=== PATIENT | male | born 1945 | race Caucasian/White ===

== ENCOUNTER 2017-04-16 15:40 | Emergency (ER) | payer MEDICARE ==
[~2017-04-16 15:40] MED LIST: BAYER CHEWABLE81 MG PO; GLIMEPIRIDE4 MG PO; GLUCOPHAGE1000 MG PO; LISINOPRIL-HCTZ1 T11 PO; NORVASC10 MG PO; PLAVIX75 MG PO; PRAVASTATIN SOD10 MG PO
[2017-04-16 16:44] LABS: BASOPHILS 0.3 % (0-2); EOSINOPHILS 2.6 % (0-7); HEMATOCRIT 42.3 % (42.0-54.0); HEMOGLOBIN 14.6 g/dL (13.5-17.5); IMMATURE GRANULOCYTES 0.2 % (0-5); LYMPHOCYTES 26.3 % (15-50); MCH 31.2 pg (26.0-34.0); MCHC 34.5 g/dL (31.0-37.0); MCV 90.4 fL (80.0-100.0); MEAN PLATELET VOLUME 12.2 fL (7.4-10.4); MONOCYTES 8.3 % (2-11); NEUTROPHILS 62.3 % (40-80); PLATELET COUNT 281 10x3/uL (130-400); RBC 4.68 10x6/uL (4.20-6.10); RDW 13.1 % (11.5-14.5); WBC 9.1 10x3/uL (4.8-10.8)
[2017-04-16 18:06] LABS: ALBUMIN 3.4 g/dL (3.4-5.0); ALKALINE PHOSPHATASE 50 U/L (46-116); ALT (SGPT) 61 U/L (10-68); BILIRUBIN - TOTAL 0.17 mg/dL (0.2-1.3); CALC OSMOLALITY 271 mosm/kg (275-300); CALCIUM 8.8 mg/dL (8.5-10.1); CARBON DIOXIDE 23.5 mmol/L (21.0-32.0); CHLORIDE - SERUM 100 mmol/L (98-107); CREATININE - SERUM 0.8 mg/dL (0.6-1.3); GLUCOSE 198 mg/dL (74-106); POTASSIUM - SERUM 3.6 mmol/L (3.5-5.1); PROTEIN - SERUM 6.9 g/dL (6.4-8.2); SODIUM 133 mmol/L (136-145); UREA NITROGEN 12 mg/dL (7-18); eGFR NON AFRICAN AMERICAN > 90 mL/min (90-120)
[2017-04-16 18:20] LABS: CHOL - HDL RATIO 4.3 ratio (2.3-4.9); CHOLESTEROL, TOTAL 129 mg/dL (0-200); CKMB 0.6 U/L (0.0-3.6); CREATINE KINASE 68 UL (21-232); HDL CHOLESTEROL 30 mg/dL (32-96); TRIGLYCERIDE 410 mg/dL (30-200)
[2017-04-16 18:26] LABS: TROPONIN-I < 0.017 ng/mL (0.000-0.060)
== END 2017-04-16 20:15 | disposition home or self-care (01) ==
LOC: D.ER 15:40
PROVIDERS: Emergency Medicine
DX: R07.9 Chest pain, unspecified (principal); I45.4 Nonspecific intraventricular block

== ENCOUNTER 2017-05-12 12:26 | Emergency (ER) | payer MEDICARE ==
[2017-05-12 13:28] LABS: BASOPHILS 0.6 % (0-2); EOSINOPHILS 1.7 % (0-7); HEMATOCRIT 44.8 % (42.0-54.0); HEMOGLOBIN 15.1 g/dL (13.5-17.5); IMMATURE GRANULOCYTES 0.3 % (0-5); LYMPHOCYTES 22.9 % (15-50); MCHC 33.7 g/dL (31.0-37.0); MEAN PLATELET VOLUME 11.3 fL (7.4-10.4); MONOCYTES 10.1 % (2-11); NEUTROPHILS 64.4 % (40-80); PLATELET COUNT 251 10x3/uL (130-400); RBC 4.87 10x6/uL (4.20-6.10); WBC 8.9 10x3/uL (4.8-10.8)
[2017-05-12 13:46] LABS: ALKALINE PHOSPHATASE 52 U/L (46-116); ALT (SGPT) 55 U/L (10-68); BILIRUBIN - TOTAL 0.37 mg/dL (0.2-1.3); CALC OSMOLALITY 272 mosm/kg (275-300); CARBON DIOXIDE 22.1 mmol/L (21.0-32.0); CHLORIDE - SERUM 98 mmol/L (98-107); CREATINE KINASE 121 UL (21-232); CREATININE - SERUM 0.8 mg/dL (0.6-1.3); GLUCOSE 175 mg/dL (74-106); PROTEIN - SERUM 7.9 g/dL (6.4-8.2); SODIUM 134 mmol/L (136-145); TROPONIN-I < 0.017 ng/mL (0.000-0.060); UREA NITROGEN 16 mg/dL (7-18); eGFR NON AFRICAN AMERICAN > 90 mL/min (90-120)
== END 2017-05-12 14:09 | disposition home or self-care (01) ==
LOC: D.ER 12:26
PROVIDERS: Family Medicine
DX: M54.2 Cervicalgia (principal); R07.89 Other chest pain; E11.9 Type 2 diabetes mellitus without complications; V43.52XA Car driver injured in collision with other type car in traffic accident, initial encounter; Y93.89 Activity, other specified; Y92.410 Unspecified street and highway as the place of occurrence of the external cause; I44.7 Left bundle-branch block, unspecified

== ENCOUNTER → 2017-09-30 14:52 | Outpatient (CLI) | payer MEDICARE | END | disposition home or self-care (01) | LOC: D.CT 14:52 | DX: R07.9 Chest pain, unspecified (principal) ==

== ENCOUNTER → 2018-04-03 13:09 | Outpatient (CLI) | payer MEDICARE | END | disposition home or self-care (01) | LOC: D.CT 13:09 | DX: R91.1 Solitary pulmonary nodule (principal) ==

== ENCOUNTER 2018-10-09 08:21 | Outpatient (CLI) | payer MEDICARE ==
[~2018-10-09] VITALS: Ht 172.7 cm; Wt 81.8 kg
--- NOTE | ~2018-10-09 | HEMODYNAMI ---
PATIENT:BRIDGETT PUGA MEDICAL RECORD: [id number] : 41 LOCATION:DBriCAT ADMISSION DATE: 10/09/18 Generatedon:10/09/201810:58 Patient name: BRIDGETT PUGA Patient #: [id number] : 1945 Date of study: 10/09/2018 Page: Of Hemodynamic Procedure Report Patient Data Patient Demographics Procedure consent was obtained First Name: BRIDGETT Gender: Male Last Name: EDD : 1945 Middle Initial: M Age: 72 year(s) Patient #: [id number] Race: SSN: [id number] Additional ID: [id number] Contact details [address]: [address] [place] [address] State: [place] City: [place] Zip code: [address] Past Medical History Allergies: No known allergies Admission Admission Data Admission Date: 10/09/2018 Admission Time: 8:21 Lab Results Lab Result Date: 10/09/2018 Lab Result Time: 0:00 Biochemistry Name Units Result Min Max BUN mg/dl 15 --(--*-)-- 7 18 Creatinine mg/dl 0.8 --(-*--)-- 0.6 1.3 CBC Name Units Result Min Max Hemoglobin g/dl 15.5 --(-*--)-- 13.5 17.5 Procedure Procedure Types Cath Procedure Diagnostic Procedure LHC LHC w/Coronaries Procedure Description Procedure Date Procedure Date: 10/09/2018 Procedure Start Time: 10:47 Procedure End Time: 10:56 Procedure Staff Name Function Franklyn Pillai MD Performing Physician Nima Benavides RT Monitor Iman Streeter RT Scrub Philippe Connolly RN Nurse Procedure Data Cath Procedure Fluoroscopy Diagnostic fluoroscopy Total fluoroscopy Time: 1 time: 1 min min Diagnostic fluoroscopy Total fluoroscopy dose: 517 dose: 517 mGy mGy Contrast Material Contrast Material Type Amount (ml) Isovue 300 300 Entry Location Entry Primary Successful Side Size Upsize Upsize Entry Closure Vincent ccessful Closure Location (Fr) 1 (Fr) 2 (Fr) Remarks Device Remarks Radial Right 6 Fr Mechanical artery Short Compression Estimated blood loss: 10 ml Diagnostic catheters Device Type Used For End Catheter Placement DIAGNOSTIC Irvine 110cm 5 Procedure Fr catheter ([id number]) Procedure Medications Medication Administration Route Dosage 0.9% NaCl I.V. 100 ml/hr Oxygen etCO2 Nasal cannula 2 l/min Heparin Flush Bag added to field 2 bags (1000units/500ml NS) Lidocaine 2% added to field 20 Radial Cocktail added to field 1 syringe (Verapomil 2mg/Nitro 400mcg/Heparin 1500units) Versed I.V. 1 mg Fentanyl I.V. 50 mcg Radial Cocktail I.A. 1 syringe (Verapomil 2mg/Nitro 400mcg/Heparin 1500units) Hemodynamics Rest HGB: 15.5 (g/dl) Heart Rate: 60 (bpm) Pressure Samples Time Site Value (mmHg) Purpose Heart Use Rate(bpm) 10:49 LV 82/-2,3 Snapshot 65 Snapshots Pre Cath Intra NCS Post Cath Vital Signs Time Heart Resp SPO2 etCO2 NIBP (mmHg) Rhythm Pain Sedation Rate (ipm) (%) (mmHg) Status Level (bpm) 10:01:59 63 24 93 0 122/74(102) NSR 0 (11) 10(A) , No pain 10:06:09 59 19 95 30 109/70(83) NSR 0 (11) 10(A) , No pain 10:10:14 57 18 92 13.5 110/68(87) NSR 0 (11) 10(A) , No pain 10:14:22 58 19 94 31.5 108/62(91) NSR 0 (11) 10(A) , No pain 10:18:30 58 18 92 31.5 107/62(80) NSR 0 (11) 10(A) , No pain 10:22:36 56 18 95 30 102/63(82) NSR 0 (11) 10(A) , No pain 10:26:42 56 17 92 30.8 103/62(85) NSR 0 (11) 10(A) , No pain 10:30:48 55 18 92 29.3 101/60(76) NSR 0 (11) 10(A) , No pain 10:34:53 56 17 92 30 98/60(69) NSR 0 (11) 10(A) , No pain 10:38:57 56 17 92 28.6 98/59(78) NSR 0 (11) 10(A) , No pain 10:43:01 57 17 92 27.8 97/59(72) NSR 0 (11) 10(A) , No pain 10:47:02 60 17 92 22.5 102/64(83) NSR 0 (11) 10(A) , No pain 10:51:08 64 19 92 0 95/56(72) NSR 0 (11) 10(A) , No pain 10:55:12 59 19 92 18 96/56(70) NSR 0 (11) 10(A) , No pain Medications Time Medication Route Dose Verified Delivered Reason Notes Effectiveness by by 9:59:59 0.9% NaCl I.V. 100 Philippe Philippe Per ml/hr Mohsen Connolly physician RN RN 10:00:11 Oxygen etCO2 2 l/min Philippe Philippe for low 02 Nasal Lorigan Mohsen sats cannula RN RN 10:00:26 Heparin Flush added 2 bags Philippe Philippe used for Bag to Lorkali Connolly procedure (1000units/500ml [facility] KELLY RN NS) 10:00:36 Lidocaine 2% added 20ml Philippe Philippe for local to vial Lorigan Mohsen anesthetic field MENDOZA RN 10:00:50 Radial Cocktail added 1 Philippe Philippe used for (Verapomil to syringe Lorigan Malloryigan procedure 2mg/Nitro field MENDOZA RN 400mcg/Heparin 1500units) 10:47:37 Versed I.V. 1 mg Philippe Philippe for sedation Mohsen Connolly RN RN 10:47:47 Fentanyl I.V. 50 mcg Philippe Philippe for sedation Mohsen Connolly RN RN 10:49:23 Radial Cocktail I.A. 1 Philippe Franklyn for (Verapomil syringe Mohsen sanabria 2mg/Nitro RN 400mcg/Heparin 1500units) Procedure Log Time Note 9:48:14 Diagnostic Cath Status : Elective 9:50:30 Philippe Connolly RN sent for patient. Start room use. 9:59:59 0.9% NaCl 100 ml/hr I.V. was administered by Philippe Connolly RN; Per physician; 10:00:11 Oxygen 2 l/min etCO2 Nasal cannula was administered by Philippe Connolly RN; for low 02 sats; 10:00:26 Heparin Flush Bag (1000units/500ml NS) 2 bags added to field was administered by Philippe Connolly RN; used for procedure; 10:00:36 Lidocaine 2% 20ml vial added to field was administered by Phiilppe Connolly RN; for local anesthetic; 10:00:50 Radial Cocktail (Verapomil 2mg/Nitro 400mcg/Heparin 1500units) 1 syringe added to field was administered by Philippe Connolly RN; used for procedure; 10:00:51 Vital chart was started 10:07:47 Time tracking: Regular hours (M-F 7:00 - 5:00) 10:07:52 Plan of Care:Hemodynamics will remain stable., Cardiac rhythm will remain stable., Comfort level will be maintained., Respiratory function will remain adequate., Patient/ family verbilizes understanding of procedure., Procedure tolerated without complication., Recovers from procedure without complications.. 10:07:59 Patient received from Pre/Post Procedure Room to [facility] 2 Alert and oriented. Tansferred to table in Supine position. 10:08:01 Warm blankets applied, and elizabeth hugger turned on for patient comfort. 10:08:01 Correct patient and procedure confirmed by team. 10:08:06 Signed procedure consent form obtained from patient. 10:08:07 ECG and BP/O2 sat monitors applied to patient. 10:08:09 Baseline sample Acquired. 10:08:15 Rhythm: sinus bradycardia 10:08:17 Full Disclosure recording started 10:08:35 H&P Date Dictated: 10/06/2018 Within 30 days and on chart., H&P Addendum completed by physician on day of procedure. (MUST COMPLETE FOR ALL OUTPATIENTS). 10:08:37 Pre-procedure instructions explained to patient. 10:08:38 Pre-op teaching completed and patient verbalized understanding. 10:08:41 Family in waiting room. 10:09:08 ALLERGY : SULFA, FLU SHOT 10:09:12 Patient NPO since Midnight. 10:09:15 Is the patient allergic to Iodine/contrast media? No. 10:09:26 Is patient on blood thinner?No 10:09:32 Patient diabetic? Yes. 10:09:34 If diabetic: On Metformin? Yes 10:09:39 If on Metformin: Last Dose? 10/07/2018 10:09:45 ----Pre-sedation anethsthesia assessment.---- 10:09:47 Previous problem with sedation/anesthesia? No ? 10:09:49 Snore? Yes 10:09:51 Sleep apnea? No 10:09:52 Deviated septum? No 10:09:53 Opens mouth fully? Yes 10:09:54 Sticks out tongue? Yes 10:09:59 Airway obstruction? Yes COPD 10:10:04 Dentures? No ? 10:10:10 Patient pain scale 0/10 ?. 10:10:21 IV patent on arrival in left forearm with 0.9% NaCl at [facility]. 10:15:08 Lab Result : BUN 15 mg/dl 10:15:08 Lab Result : Creatinine 0.8 mg/dl 10:15:08 Lab Result : Hemoglobin 15.5 g/dl 10:15:18 Right Radial & Right Groin area was prepped with chlora-prep and draped in sterile fashion 10:15:19 Lab results completed and on chart. 10:15:22 Alarms reviewed by R. N. 10:15:23 Sharps counted by scrub and verified by R.N. 10:15:24 DR. PILLAI IN ROOM 2 10:15:26 Zero performed for pressure channel P1 10:15:57 Use device set Radial Dx or PCI 10:15:59 ACIST Syringe (57735) opened to sterile field. 10:16:00 Medline Cath Pack ([id number]) opened to sterile field. 10:16:00 Bag Decanter () opened to sterile field. 10:16:01 DIAGNOSTIC WIRE .035 260cm J wire (344520) opened to sterile field. 10:16:02 ACIST Hand Control (15604) opened to sterile field. 10:16:03 ACIST Manifold (42545) opened to sterile field. 10:16:03 Tegaderm 4 x 4 (1626W) opened to sterile field. 10:16:04 MBrace Wrist Support ([id number]) opened to sterile field. 10:16:06 SHEATH 6FR Slender (801060) opened to sterile field. 10:17:25 Maximum allowable Isovue 300 dose 300ml. Physician notified. (300ml for normal creatinines. For patients with creatinine of 1.7 or higher multiply weight(kg) x 5 divided by creatinine.) 10:38:47 Physician arrived 10:44: Physician arrived :: --------ALL STOP TIME OUT------ :44:28 Final Timeout: patient, procedure, and site verified with staff and physician. All members of the team are in agreement. 10:44:31 Right Radial & Right Groin site verified by team. 10:44:35 Fire Safety Assessment: A--An alcohol-based skin anteseptic being used preoperatively., C--Open oxygen or nitrous oxide is being used., D--An ESU, laser, or fiber-optic light is being used. 10:44:40 Physical assessment completed. ASA score P 2 - A patient with mild systemic disease as per Franklyn Pillai MD. 10:44:45 Sedation plan: IV Moderate Sedation Medication:Versed, Fentanyl 10:47:36 Procedure started. 10:47:37 Versed 1 mg I.V. was administered by Philippe Connolly RN; for sedation; 10:47:42 Local anesthetic to right radial artery with Lidocaine 2% by Franklyn Pillai MD.INITIAL ACCESS ONLY 10:47:47 Fentanyl 50 mcg I.V. was administered by Philippe Connolly RN; for sedation; 10:48:08 A 6 Fr Short sheath was inserted into the Right Radial artery 10:48:39 A DIAGNOSTIC [place] 110cm 5 Fr catheter ([id number]) was advanced over the wire and used for Procedure. 10:49:23 Radial Cocktail (Verapomil 2mg/Nitro 400mcg/Heparin 1500units) 1 syringe I.A. was administered by Franklyn Pillai MD; for vasodilation; 10:49:58 LV hemodynamics recorded. 10:50:00 LV gram done using CARRASCO 10:50:11 EF : 55 % 10:50:21 LCA angiography performed. 10:51:18 RCA angiography performed. 10:51:49 Catheter removed. 10:51:53 TR BAND Large ([id number]) opened to sterile field. 10:52:06 Sheath removed intact; hemostasis achieved with Mechanical Compression to the Right Radial artery. 10:52:09 Procedure ended.(Physican Out) 10:52:30 Fluoroscopy time 01.00 minutes. 10:52:36 Fluoroscopy dose: 517 mGy 10:52:36 Flurop Dose total: 517 10:52:59 Contrast amount:Isovue 300 300ml. 10:55:22 TR band inflated with 10cc of air. 10:55:25 Insertion/operative site no bleeding no hematoma. 10:55:34 Post right radial artery:stable 10:55:44 Post-procedure physical assessment completed. ASA score P 2 - A patient with mild systemic disease as per Franklyn Pillai MD. 10:55:49 Post procedure rhythm: sinus bradycardia 10:55:56 Estimated blood loss: 10 ml 10:56:33 Patient needs reinforcement of post procedure teaching. 10:56:35 Procedure and supply charges have been captured, reviewed, submitted and are correct. 10:56:39 Vital chart was stopped 10:56:46 See physician's report for complete and final results. 10:56:48 Report given to Pre/Post Procedure Room. 10:56:52 Patient transfered to Pre/Post Procedure Room with Stretcher. 10:56:55 Procedure ended. 10:56:55 Full Disclosure recording stopped 10:56:59 End room use (Document Last) Device Usage Item Name Manufacture Quantity Catalog Hospital Part Current Minimal Lot# / Number Charge Number Stock Stock Serial# Code ACIST Acist 1 [id number] [id number] 419468 436941 20 Syringe Medical (47533) Systems Inc Medline Medline 1 [id number] 055256 20720 938974 5 Cath Pack ([id number]) Bag Microtek 1 250967 01946 192457 5 Decanter Medical Inc. () DIAGNOSTIC St Sony 1 575033 875881 028745 239466 30 WIRE .035 260cm J wire (879857) ACIST Hand Acist 1 53559 101339 611148 471353 5 Control Medical (46470) Systems Inc ACIST Acist 1 88560 762247 489863 845304 5 Manifold Medical (73330) Systems Inc Tegaderm 4 3M 1 1626W 827376 478844 152146 5 x 4 (1626W) MBrace Advanced 1 140-0250-00 223116 33521 204400 5 Wrist Vascular Support Dynamics ([id number]) SHEATH 6FR Terumo 1 [id number] 409188 104667 263786 5 Slender (25-6180) DIAGNOSTIC Terumo 1 38-1316 386604 928305 890979 5 Irvine 110cm 5 Fr catheter (921074) TR BAND Terumo 1 [id number] 191743 422049 419379 40 Large ([id number]) Signature Audit [place] Stage Time Signature Unsigned Intra-Procedure 10/09/2018 Nima Benavides 10:58:36 AM RT(R) (CV) Signatures Monitor : Nima Benavides RT Signature : Date : Time : [address] [address]
[2018-10-09] MEDS ORDERED: JARDIANCE25 MG PO (08:49)
[2018-10-09] MEDS ORDERED: CENTRUM MEN'S1 EACH PO (08:51)
[2018-10-09] MEDS ORDERED: ZYRTEC10 MG PO (08:51)
[2018-10-09] MEDS ORDERED: BAYER CHEWABLE81 MG PO (08:51)
[2018-10-09 08:57] VITALS: BP 132/77; Ht 172.7 cm; Wt 81.8 kg
[2018-10-09 09:14] LABS: CALC OSMOLALITY 274 mosm/kg (275-300); CALCIUM 8.8 mg/dL (8.5-10.1); CARBON DIOXIDE 24.9 mmol/L (21.0-32.0); CHLORIDE - SERUM 101 mmol/L (98-107); CREATININE - SERUM 0.8 mg/dL (0.6-1.3); GLUCOSE 169 mg/dL (74-106); SODIUM 135 mmol/L (136-145); UREA NITROGEN 15 mg/dL (7-18); eGFR NON AFRICAN AMERICAN > 90 mL/min (90-120)
[2018-10-09 09:15] LABS: POTASSIUM - SERUM 4.5 mmol/L (3.5-5.1)
[2018-10-09 09:17] LABS: HEMATOCRIT 46.7 % (42.0-54.0); HEMOGLOBIN 15.5 g/dL (13.5-17.5); LYMPHOCYTES 24.5 % (15-50); MCH 29.9 pg (26.0-34.0); MCHC 33.2 g/dL (31.0-37.0); MCV 90.2 fL (80.0-100.0); MEAN PLATELET VOLUME 10.9 fL (7.4-10.4); NEUTROPHILS 62.5 % (40-80); PLATELET COUNT 212 10x3/uL (130-400); RBC 5.18 10x6/uL (4.20-6.10); RDW 13.6 % (11.5-14.5); WBC 7.5 10x3/uL (4.8-10.8)
--- NOTE | 2018-10-09 11:20 | NUR ---
PATIENT AWAKE, EATING DONUT BROUGHT BY FAMILY. VSS ON 2L NC. RIGHT TR BAND IN PLACE, NO S/S OF BLEEDING OR HEMATOMA. NO C/O PAIN, NUMBNESS, OR TINGLING. NO N/V.
--- NOTE | 2018-10-09 12:00 | NUR ---
BEGINNING AIR REMOVAL PROTOCOL FOR TR BAND, 4CC OF AIR REMOVED. NO S/S OF BLEEDING OR HEMATOMA. PATIENT AWAKE, FAMILY AT BEDSIDE. VSS ON 1L NC. NO N/V. NO C/O PAIN, NUMBNESS, OR TINGLING.
--- NOTE | 2018-10-09 12:30 | NUR ---
PATIENT AWAKE, 4CC OF AIR REMOVED FROM TR BAND, NO S/S OF BLEEDING OR HEMATOMA. NO C/O PAIN, NUMBNESS, OR TINGLING. VSS ON ROOM AIR. IV REMOVED.
--- NOTE | 2018-10-09 12:45 | NUR ---
DRESSING APPLIED TO RIGHT RADIAL SITE, NO S/S OF BLEEDING OR HEMATOMA. DISCHARGE INSTRUCTIONS GIVEN TO PATIENT AND FAMILY MEMBER, PATIENT VOICES UNDERSTANDING.
--- NOTE | 2018-10-09 13:00 | NUR ---
PATIENT TRANSPORTED VIA WHEELCHAIR TO CAR WITH SPOUSE DRIVING, ALL BELONGINGS SENT WITH PATIENT.
--- NOTE | 2018-10-09 15:03 | OP ---
PATIENT NAME: BRIDGETT PUGA MEDICAL RECORD: [id number] :41 LOCATION:D.CAT ADMISSION DATE: SURGEON: DESMOND CAMPBELL MD DATE OF OPERATION: 10/09/2018 PROCEDURES: 1. Left heart catheterization. 2. Selective coronary angiography. 3. Left ventriculogram. INDICATIONS: Angina and coronary artery disease. PROCEDURE PERFORMED: After informed consent was obtained and after detailed explanation of risks, benefits as well as alternative therapies, the patient elected to proceed with angiogram and heart catheterization. The right radial area was prepped and draped in normal sterile fashion. Right radial artery was cannulated via modified Seldinger technique with placement of 5-Serbian sheath. All catheters exchanged through this sheath. FINDINGS: Left ventriculogram was performed in standard 30-degree CARRASCO view, reveals good cardiac wall motion throughout all segments. Overall ejection fraction estimated 60%. SELECTIVE CORONARY ANGIOGRAPHY: 1. Left main has no significant angiographic disease. 2. Left anterior descending has a previously placed stent. This is widely patent with no significant restenosis. No disease elsewise throughout the LAD or its branches. 3. Left circumflex has mild irregularities, but no flow-limiting stenosis. 4. The right coronary has previously placed stent. This is widely patent with no significant restenosis. No disease elsewise throughout the RCA or its branches. OVERALL IMPRESSION: Wide patency of the previously placed stents in the LAD and RCA, no disease elsewise. Continue medical management of the coronary artery disease and cardiac risk factors. TRANSINT:[id number] Voice Confirmation ID: [id number] DOCUMENT ID: [id number] DESMOND CAMPBELL MD at 1503 CC: [id number] DICTATION DATE: 10/09/18 1055 DERMATOPATHOLOGIST: 10/09/18 1153 DEP CLI 10/09/18 [place] [id number]
== END 2018-10-09 13:00 ==
LOC: D.CATH 08:21
PROVIDERS: ATTEND Internal Medicine Interventional Cardiology
DX: I25.119 Atherosclerotic heart disease of native coronary artery with unspecified angina pectoris (principal); Z95.5 Presence of coronary angioplasty implant and graft; Z01.812 Encounter for preprocedural laboratory examination

== ENCOUNTER 2019-02-16 15:57 | Inpatient (IN) | payer MEDICARE ==
[~2019-02-16] VITALS: Ht 172.7 cm; Wt 86.2 kg
[~2019-02-16 15:57] MED LIST changes: +CENTRUM MEN'S1 EACH PO; +JARDIANCE25 MG PO; +ZYRTEC10 MG PO
[2019-02-16 16:30] LABS: BASOPHILS 0.1 % (0-2); EOSINOPHILS 0 % (0-7); HEMATOCRIT 39.1 % (42.0-54.0); HEMOGLOBIN 13.8 g/dL (13.5-17.5); IMMATURE GRANULOCYTES 6.4 % (0-5); LYMPHOCYTES 2.8 % (15-50); MCH 31.5 pg (26.0-34.0); MCHC 35.3 g/dL (31.0-37.0); MCV 89.3 fL (80.0-100.0); MEAN PLATELET VOLUME 11.3 fL (7.4-10.4); MONOCYTES 2.3 % (2-11); NEUTROPHILS 88.4 % (40-80); PLATELET COUNT 193 10x3/uL (130-400); RBC 4.38 10x6/uL (4.20-6.10); RDW 13.5 % (11.5-14.5); WBC 16.9 10x3/uL (4.8-10.8)
[2019-02-16 16:47] LABS: ALBUMIN 3.1 g/dL (3.4-5.0); ANION GAP 20.6 mmol/L (8-16); BILIRUBIN - TOTAL 1.22 mg/dL (0.2-1.3); CALCIUM 8.5 mg/dL (8.5-10.1); CARBON DIOXIDE 17.8 mmol/L (21.0-32.0); CREATININE - SERUM 1.8 mg/dL (0.6-1.3); POTASSIUM - SERUM 4.4 mmol/L (3.5-5.1); PROTEIN - SERUM 7.3 g/dL (6.4-8.2)
[2019-02-16 16:59] LABS: INR 1.24 (0.85-1.17); PROTIME 15.1 SECONDS (11.6-15.0)
[2019-02-16 17:30] LABS: CKMB 0.5 U/L (0.0-3.6); CREATINE KINASE 127 UL (21-232); PRO BNP 2095 pg/mL (0-450)
[2019-02-16 17:58] LABS: C-REACTIVE PROTEIN 39.9 mg/dL (0.0-0.9); TROPONIN-I < 0.017 ng/mL (0.000-0.060)
--- NOTE | 2019-02-16 18:02 | NUR ---
LAB CALLED WITH CRITICAL RESULT OF MAG 1.0.
--- NOTE | 2019-02-16 18:27 | NUR ---
PT TO [facility] AT 1820, NURSE CALLED REPORT TO KELLY FRANCISCO AT 182.
--- NOTE | 2019-02-16 19:00 | NUR ---
AZITHROMYCIN COMPLETED AT 1900.
--- NOTE | 2019-02-16 19:45 | NUR ---
ARRIVED TO ROOM 2227 VIA HOSPITAL STAFF WITH AT SIDE. ABLE TO TRANSFER BY SELF TO BED FROM STRETCHER WITH JUST STAND BY ASSIST. SKIN TO ALL AREAS IS CLEAN, DRY AND INTACT, HAS SOME DRY PATCHES, LOTION OFFERED. WILL TAKE VALUABLES HOME WITH HER. ALERT AND ORIENTED TIMES 3. ABLE TO VOICE ALL NEEDS. DENIES PAIN AT THIS TIME. WHEEZING NOTED ON INSPIRATORY AND EXPIRATORY. 02 AT 3L PER NC, IV TO LEFT AC PATENT WITH ZITHROMAX AND LR INFUSING PER ORDERS, IV CONTINUES TO OCCLUDE WHEN PATIENT MOVES ARM IN A BENDING MOTION, REQUESTS NEW SITE, SITE TO RIGHT HAND OBTAINED, NORMAL SALINE INFUSED PER ORDERS WITH BOLUS LR TO LEFT AC CONTINUED. WILL NOTE ANY CHANGE.
--- NOTE | 2019-02-16 20:00 | NUR ---
PT ARRIVED TO FLOOR ALERT AND ORIENTED. REQUESTED AND GIVEN SANDWICH AND WATER. ASSESSMENT COMPLETED AT THIS TIME. DENIES OTHER NEEDS. CL IN REACH, WILL CTM
[2019-02-16 20:51] VITALS: BP 114/57
--- NOTE | 2019-02-16 22:29 | NUR ---
BEDSIDE PULSE OX WAS 88-89% ON 3 LPM, O2 TITRATED TO 4 WITH RESULTS OF PSO2 OF 91-92%. WILL NOTE ANY CHANGE.
[2019-02-17 01:25] VITALS: BP 113/56
[2019-02-17 02:36] VITALS: BMI 29.1
[2019-02-17 04:48] VITALS: BP 139/75
--- NOTE | 2019-02-17 04:57 | NUR ---
PYTHON WEB DEVELOPER UNAVAILABLE AT THIS TIME.
[2019-02-17 06:56] LABS: ANION GAP 16.8 mmol/L (8-16); CALCIUM 8.3 mg/dL (8.5-10.1); CARBON DIOXIDE 19.9 mmol/L (21.0-32.0)
[2019-02-17 07:04] LABS: CREATININE - SERUM 1.2 mg/dL (0.6-1.3); MAGNESIUM - SERUM 2.5 mg/dL (1.8-2.4); POTASSIUM - SERUM 3.7 mmol/L (3.5-5.1)
[2019-02-17 07:10] LABS: HEMATOCRIT 36.4 % (42.0-54.0); HEMOGLOBIN 12.6 g/dL (13.5-17.5); MCH 31.3 pg (26.0-34.0); MCHC 34.6 g/dL (31.0-37.0); MCV 90.3 fL (80.0-100.0); MEAN PLATELET VOLUME 12.2 fL (7.4-10.4); PLATELET COUNT 199 10x3/uL (130-400); RBC 4.03 10x6/uL (4.20-6.10); RDW 13.5 % (11.5-14.5); WBC 20.1 10x3/uL (4.8-10.8)
[2019-02-17 07:34] LABS: APPEARANCE CLEAR (CLEAR); BILIRUBIN NEGATIVE (NEGATIVE); COLOR YELLOW (YELLOW); GLUCOSE NEGATIVE (NEGATIVE); KETONE NEGATIVE (NEGATIVE); NITRITE NEGATIVE (NEGATIVE); PROTEIN NEGATIVE (NEGATIVE); SPECIFIC GRAVITY 1.015 (1.005-1.020); UROBILINOGEN NORMAL (NORMAL)
[2019-02-17 08:48] VITALS: BP 173/55
[2019-02-17 09:33] LABS: LYMPHOCYTES 5 % (15-50); MONOCYTES 8 % (2-11); NEUTROPHILS 62 % (40-80); PLATELET ESTIMATE NORMAL
[2019-02-17 09:34] LABS: ANISOCYTOSIS OCC; ROULEAUX OCC
[2019-02-17 12:28] VITALS: BP 123/61
[2019-02-17 13:09] LABS: CKMB 0.8 U/L (0.0-3.6); CREATINE KINASE 81 UL (21-232); TROPONIN-I < 0.017 ng/mL (0.000-0.060)
--- NOTE | 2019-02-17 13:44 | NUR ---
LYING IN BED,WITHOUT DISTRESS.
[2019-02-17 14:10] VITALS: Ht 172.7 cm; Wt 86.2 kg
--- NOTE | 2019-02-17 15:06 | NUR ---
OT NOTE: ATTEMPTED OT EVAL. PT WAS SLEEPING AND FAMILY REQUESTED TO TRY AGAIN TOMORROW. STATES THAT PT WAS COMPLETELY INDPE, DRIVING , AND WORKING PRIOR TO ADMISSION. STATES THAT HE WAS FEELING BETTER THIS AFTERNOON AND WAS ABLE TO GET TO SHOWER AND PERFORM ALL BATHING WITHOUT ASSIST. STATES THAT HE DOES NOT USE ASSISTIVE DEVICE AT HOME. WILL RE ATTEMPT TOMORROW. GENI DEE, OTR/L
[2019-02-17 18:20] VITALS: BP 127/69
[2019-02-17 20:01] LABS: CKMB 0.8 U/L (0.0-3.6); CREATINE KINASE 70 UL (21-232)
[2019-02-17 20:02] LABS: TROPONIN-I < 0.017 ng/mL (0.000-0.060)
--- NOTE | 2019-02-17 20:45 | NUR ---
AWAKE,ALERT.NO COMPLAINTS VOICED. RESP UNLABORED. IV INFUSING TO DONOVAN WIHTOUT REDNESS OR EDEMA NOTED. CL IN REACH
[2019-02-17 22:18] VITALS: BP 113/56
[2019-02-18 01:53] LABS: CKMB 0.5 U/L (0.0-3.6); CREATINE KINASE 61 UL (21-232); TROPONIN-I < 0.017 ng/mL (0.000-0.060)
--- NOTE | 2019-02-18 04:43 | NUR ---
I have reviewed this patient and I concur with the Shift Assessment completed by the Licensed Practical Nurse today this shift.
[2019-02-18 05:46] VITALS: BP 118/66
[2019-02-18 07:20] LABS: % SATURATION 27 % (15-55); IRON 53 ug/dl (35-150); TOTAL IRON BIND CAPACITY 193 ug/dl (260-445); UNSAT IRON BIND CAPACITY 140 ug/dl (150-375)
[2019-02-18 07:21] LABS: BASOPHILS 0 % (0-2); EOSINOPHILS 0 % (0-7); HEMATOCRIT 33.9 % (42.0-54.0); HEMOGLOBIN 11.7 g/dL (13.5-17.5); IMMATURE GRANULOCYTES 1.2 % (0-5); LYMPHOCYTES 3.2 % (15-50); MCH 31.1 pg (26.0-34.0); MCHC 34.5 g/dL (31.0-37.0); MCV 90.2 fL (80.0-100.0); MEAN PLATELET VOLUME 12.6 fL (7.4-10.4); MONOCYTES 4.5 % (2-11); NEUTROPHILS 91.1 % (40-80); PLATELET COUNT 198 10x3/uL (130-400); RBC 3.76 10x6/uL (4.20-6.10); RDW 13.5 % (11.5-14.5); WBC 22.1 10x3/uL (4.8-10.8)
--- NOTE | 2019-02-18 07:35 | NUR ---
ALERT AND ORIENTED, RESTING IN BED. PT SHUNGNAK. ON ELECTROLYTE PROTOCOL. RIGHT UPPER ARM PICC, NS INFUSING @ 100ML/HR. PT HAS PRODUCTIVE COUGH, WHITE SPUTUM. PT ON TELEMETRY 75 SR WITH BBB. PT DENIES ANY NEEDS. CALL LIGHT IN REACH. WILL CONTINUE TO MONITOR.
[2019-02-18 07:51] LABS: ALKALINE PHOSPHATASE 49 U/L (46-116); ALT (SGPT) 25 U/L (10-68); BILIRUBIN - TOTAL 0.29 mg/dL (0.2-1.3); CALC OSMOLALITY 281 mosm/kg (275-300); CHLORIDE - SERUM 98 mmol/L (98-107); CREATININE - SERUM 0.9 mg/dL (0.6-1.3); FERRITIN 697 ng/mL (3-244); GLUCOSE 282 mg/dL (74-106); MAGNESIUM - SERUM 2.7 mg/dL (1.8-2.4); POTASSIUM - SERUM 3.5 mmol/L (3.5-5.1); PROTEIN - SERUM 6.4 g/dL (6.4-8.2); SODIUM 131 mmol/L (136-145); UREA NITROGEN 39 mg/dL (7-18); eGFR NON AFRICAN AMERICAN 87 mL/min (90-120)
[2019-02-18 07:53] LABS: ALBUMIN 2.3 g/dL (3.4-5.0); PHOSPHOROUS 1.9 mg/dL (2.5-4.9)
[2019-02-18 10:52] VITALS: BP 146/84
--- NOTE | 2019-02-18 12:51 | NUR ---
TRANSFERRED PT TO 2138 PER SAND SCREENER OPERATOR'S REQUEST. GAVE REPORT TO KELLY JERNIGAN.
--- NOTE | 2019-02-18 13:58 | NUR ---
PATIENT TO TRANSFER FROM MED/SURG. QUESTIONED PATIENT R/T SMOKING UPON ADMIT STATUS. PATIENT STATES THAT HE CHEWS. I TOLD HIM THAT THIS IS A NON TOBACCO FACILITY. HE CONSENTED TO A NICOTINE PATCH WHICH I ORDERED.
--- NOTE | 2019-02-18 16:01 | NUR ---
OT NOTE: PT COMPLETED SUPINE TO SIT WITH SBA. PT COMPLETED ADL MOB TO TOILET WITH SPV. PT COMPLETED DRESSING TECHNIQUES WITH SET UP. PT DOING WELL. THANK YOU, REYMUNDO WANG
[2019-02-18 16:24] VITALS: BP 147/80
--- NOTE | 2019-02-18 19:10 | NUR ---
BEDSIDE REPORT RECEIVED FROM DAY SHIFT. PT CARE ASSUMED. INTRODUCED SELF AND WROTE NAME ON BOARD. PT LYING IN BED, AAOX4, DENIES PAIN AND OTHER NEEDS AT THIS TIME. BED IN LOWEST POSITION, SR X2, CALL LIGHT AND CELLPHONE WITHIN REACH. WILL CONTINUE TO MONITOR.
[2019-02-18 20:00] VITALS: BP 108/96
[2019-02-19] VITALS: BP 117/62
--- NOTE | 2019-02-19 00:13 | NUR ---
FSBS 233. 8 UNITS INSULIN ADMINISTERED, PER SLIDING SCALE. PT REFUSED SNACK. DENIES PAIN OR ANY OTHER NEEDS AT THIS TIME. BED IN LOWEST POSITION, SR X2, CALL LIGHT AND CELLPHONE WITHIN REACH. WILL CONTINUE TO MONITOR.
--- NOTE | 2019-02-19 02:33 | NUR ---
PT BACK TO BED, TELEMETRY APPLIED: 65 SINUS RHYTHM WITH BUNDLE BRANCH BLOCK PER RESTAURANT CREW PERSON TECH. RT IN ROOM ADMINISTERING TREATMENT. DENIES PAIN OR ANY OTHER NEEDS AT THIS TIME. BED IN LOWEST POSITION, SR X2, CALL LIGHT AND CELL PHONE WITHIN REACH. WILL CONTINUE TO MONITOR.
[2019-02-19 04:30] VITALS: BP 121/64
[2019-02-19 06:33] LABS: HEMATOCRIT 35.2 % (42.0-54.0); HEMOGLOBIN 12.1 g/dL (13.5-17.5); MCH 31.1 pg (26.0-34.0); MCHC 34.4 g/dL (31.0-37.0); MCV 90.5 fL (80.0-100.0); PLATELET COUNT 191 10x3/uL (130-400); RBC 3.89 10x6/uL (4.20-6.10); RDW 13.6 % (11.5-14.5); WBC 17.5 10x3/uL (4.8-10.8)
[2019-02-19 06:35] LABS: ALBUMIN 2.3 g/dL (3.4-5.0); ALKALINE PHOSPHATASE 39 U/L (46-116); ALT (SGPT) 38 U/L (10-68); BILIRUBIN - TOTAL 0.43 mg/dL (0.2-1.3); CALC OSMOLALITY 282 mosm/kg (275-300); CALCIUM 7.9 mg/dL (8.5-10.1); CARBON DIOXIDE 21.5 mmol/L (21.0-32.0); CHLORIDE - SERUM 100 mmol/L (98-107); CREATININE - SERUM 0.8 mg/dL (0.6-1.3); GLUCOSE 290 mg/dL (74-106); PHOSPHOROUS 2.3 mg/dL (2.5-4.9); POTASSIUM - SERUM 3.8 mmol/L (3.5-5.1); PROTEIN - SERUM 6.2 g/dL (6.4-8.2); SODIUM 133 mmol/L (136-145); UREA NITROGEN 29 mg/dL (7-18); eGFR NON AFRICAN AMERICAN > 90 mL/min (90-120)
[2019-02-19 08:59] VITALS: BP 136/72
--- NOTE | 2019-02-19 09:10 | NUR ---
PATIENT IS SITTING UP ON THE EDGE OF THE BED. HE SAT UP FOR BREAKFAST. WHEN CHECKING HIS IV IN THE RIGHT ARM, I SEE THAT IT IS INFILTATED. WILL REMOVE NOW. MUST GET DAILY WEIGHTS.
[2019-02-19 09:27] LABS: LYMPHOCYTES 11 % (15-50); MONOCYTES 9 % (2-11); NEUTROPHILS 76 % (40-80); PLATELET ESTIMATE NORMAL
--- NOTE | 2019-02-19 11:43 | NUR ---
REMOVED IV FROM RIGHT UPPER ARM. CATHETER INTACT, PATIENT TOLERATED. IV WAS PAINFUL AND HAD BECOME INFILTARATED.
--- NOTE | 2019-02-19 12:59 | NUR ---
20 G IV STARTED IN THE RIGHT HAND. ONE STICK, PATIENT TOLERATED.
--- NOTE | 2019-02-19 14:42 | NUR ---
Nutrition Follow-up: Pt reports overall good/fair appetite/PO intake. Diet: Diabetic; Glucerna with breakfast & dinner Last BM: 02/19 Wt: 197# Labs reviewed Meds reviewed Diet adjusted to include dental soft foods per pt's request. [place] food preferences within diet restrictions. RD following.
--- NOTE | 2019-02-19 15:46 | NUR ---
DR LENZ WANTED A CONSULT TO VASCULAR NURSE FOR A CENTRAL LINE, BECAUSE THIS PATIENT HAS SO MUCH FLUID AND ANTIBIOTICS GOING IN AND HE HAS ONLY A SMALL IV IN HIS RIGHT HAND.
[2019-02-19 16:17] VITALS: BP 138/63
--- NOTE | 2019-02-19 16:41 | MORECARE ---
CASE MANAGEMENT DISCHARGE SUMMARY PATIENT: SARBJIT PUGA UNIT: [id number] ADM DATE: 02/16/19 AGE: 73 : 43 SEX: M ROOM/BED: D.2067 AUTHOR: JAYLONDOC PHYSICIAN: REFERRING PHYSICIAN: ANTONIO THAKKAR MD DATE OF SERVICE: 02/19/19 Discharge Plan Patient Name: SARBJIT PUGA Facility: [facility]:[place] : 1945 Planned Disposition: Home Anticipated Discharge Date: Discharge Date: Expected LOS: Initial Reviewer: [email or web address] Initial Review Date: 02/19/2019 Generated: 02/19/19 5:41 pm Comments DCP- Discharge Planning Updated by [email or web address]: Sarbjit Hawkins on 02/19/19 3:[address] Patient Name: SARBJIT PUGA Admission Status: ER Accout number: [id number] Admission Date: 02-16-2019 : 1945 Admission Diagnosis:SEPSIS, UNSPECIFIED ORGANISM Attending: ANTONIO THAKKAR Current LOS: 3 Anticipated DC Date: Planned Disposition: Home Primary Insurance: [facility] [employer] Discharge Planning Comments: CM MET WITH PT IN ROOM TO DISCUSS DISCHARGE PLANNING AND NEEDS. PT REPORTS LIVING AT HOME INDEPENDENTLY WITH HIS . PT HAS NO MEDICAL EQUIPMENT AND NO OUTSIDE SERVICES ASSISTING IN THE HOME. CM DISCUSSED AVAILABILITY OF HOME HEALTH, REHAB SERVICES AND MEDICAL EQUIPMENT. PT REPORTS UNKNOWN DISCHARGE NEEDS AT THIS TIME, WANTS TO GO HOME WITH AT DISCHARGE. PT REPORTS HIS WILL PICK HIM UP FOR DISCHARGE HOME. PT PLANS TO DISCHARGE HOME WITH SPOUSE, HAS UNKNOWN DISCHARGE NEEDS AT THIS TIME. CM TO FOLLOW AND ASSIST IF NEEDED. Liquor Bridge Operator: Sarbjit Hawkins DCPIA - Discharge Planning Initial Assessment Updated by [id number]: Sarbjit Hawkins on 02/19/19 4:34 pm * Is the patient Alert and Oriented? Yes * How many steps to enter\exit or inside your home? NONE * PCP DR. TOMLINSON * Pharmacy [facility] * Preadmission Environment Home with Family * ADLs Independent * Equipment None * Other Equipment NO MEDICAL EQUIPMENT PROVIDER PREFERENCE * List name and contact numbers for known caregivers / representatives who currently or will assist patient after discharge: LAURIE PUGA, SPOUSE, * Verbal permission to speak to the caregivers and representatives has been obtained from the patient. N/A * Community resources currently utilized None * Please name any agencies selected above. NONE * Additional services required to return to the preadmission environment? No * Can the patient safely return to the preadmission environment? Yes * Has this patient been hospitalized within the prior 30 days at any hospital? No Patient Name: SARBJIT PUGA Page 20943 at 1641 All edits/amendments must be made on the electronic document DICTATION DATE: 02/19/191640 NUTRITION SPECIALIST: JAMESON 02/19/191640 RPT#: [id number] DC DATE: STATUS: ADM IN [facility] [address] [place] [address] END OF REPORT
[2019-02-19 20:00] VITALS: BP 104/59
[2019-02-20 00:30] VITALS: BP 112/52
[2019-02-20 04:30] VITALS: BP 120/65
[2019-02-20 06:00] LABS: BASOPHILS 0.1 % (0-2); EOSINOPHILS 0 % (0-7); HEMATOCRIT 35.5 % (42.0-54.0); HEMOGLOBIN 12.3 g/dL (13.5-17.5); IMMATURE GRANULOCYTES 10.1 % (0-5); LYMPHOCYTES 7.2 % (15-50); MCH 30.7 pg (26.0-34.0); MCHC 34.6 g/dL (31.0-37.0); MEAN PLATELET VOLUME 11.2 fL (7.4-10.4); MONOCYTES 9.4 % (2-11); NEUTROPHILS 73.2 % (40-80); PLATELET COUNT 207 10x3/uL (130-400); RBC 4.01 10x6/uL (4.20-6.10); RDW 13.3 % (11.5-14.5); WBC 16.5 10x3/uL (4.8-10.8)
[2019-02-20 06:14] LABS: ALBUMIN 2.4 g/dL (3.4-5.0); ALKALINE PHOSPHATASE 45 U/L (46-116); BILIRUBIN - TOTAL 0.55 mg/dL (0.2-1.3); CALC OSMOLALITY 281 mosm/kg (275-300); CALCIUM 7.9 mg/dL (8.5-10.1); CARBON DIOXIDE 23.1 mmol/L (21.0-32.0); CHLORIDE - SERUM 99 mmol/L (98-107); CREATININE - SERUM 0.9 mg/dL (0.6-1.3); GLUCOSE 284 mg/dL (74-106); MAGNESIUM - SERUM 1.9 mg/dL (1.8-2.4); PHOSPHOROUS 2.8 mg/dL (2.5-4.9); POTASSIUM - SERUM 3.5 mmol/L (3.5-5.1); PROTEIN - SERUM 6.2 g/dL (6.4-8.2); SODIUM 133 mmol/L (136-145); UREA NITROGEN 28 mg/dL (7-18); eGFR NON AFRICAN AMERICAN 87 mL/min (90-120)
[2019-02-20 06:18] LABS: ALT (SGPT) 58 U/L (10-68)
[2019-02-20 06:23] LABS: MCV 88.5 fL (80.0-100.0)
--- NOTE | 2019-02-20 07:54 | NUR ---
RECIEVED REPORT. IV IS INFILTRATED . REMOVED IV FROM RIGHT HAND WITH CATHETER INTACT. PATIENT TOLERATED. HE IS GETTING IN THE SHOWER NOW, AND THEN I WILL RESITE HIS IV. PATIENT AT BEDSIDE. HE DENIES ANY NEEDS AT THIS TIME.
--- NOTE | 2019-02-20 11:07 | NUR ---
22G IV START IN LEFT THUMB. ONE STICK, PATIENT TOLERATED.
[2019-02-20 12:13] VITALS: BP 134/74
--- NOTE | 2019-02-20 12:40 | NUR ---
WAITING TO GIVE VANC UNTIL I SEE VANC TROUGH. RESULTS HAVE NOT SHOWN UP YET. I DID CALL LAB AND ASK THEM TO CALL WHEN THEY KNOW.
--- NOTE | 2019-02-20 19:22 | NUR ---
REPORT RECEIVED FROM DAY SHIFT. PT CARE ASSUMED. WROTE NAME ON BOARD IN PT'S ROOM. PT SITTING UP IN BED, AAOX4, RECEIVING RESPIRATORY TREATMENT WITH RT IN ROOM. DENIES PAIN OR ANY OTHER NEEDS AT THIS TIME. BED IN LOWEST POSITION, SR X2, CALL LIGHT AND CELL PHONE WITHIN REACH. WILL CONTINUE TO MONITOR.
[2019-02-20 20:00] VITALS: BP 139/70
[2019-02-21] VITALS: BP 140/71
--- NOTE | 2019-02-21 01:05 | NUR ---
PT C/O PAIN AT IV SITE IN LEFT HAND. REMOVED IV, CATHETER TIP INTACT. NEW IV SITED TO RIGHT FOREARM, 22 GAUGE, X1 ATTEMPT. PT TOLERATED WELL. BED IN LOWEST POSITION, SR X2, CALL LIGHT AND CELL PHONE WITHIN REACH. WILL CONTINUE TO MONITOR.
--- NOTE | 2019-02-21 03:50 | NUR ---
PT RESTING IN BED WITH EYES CLOSED, RESPIRATIONS EVEN AND NONLABORED, NO S/S OF DISTRESS. EASILY AROUSED BY VOICE, DENIES PAIN OR ANY NEEDS AT THIS TIME. BED IN LOWEST POSITION, SR X2, CALL LIGHT AND CELL PHONE WITHIN REACH. WILL CONTINUE TO MONITOR.
[2019-02-21 04:00] VITALS: BP 136/68
[2019-02-21 06:18] LABS: BASOPHILS 0.1 % (0-2); EOSINOPHILS 0.1 % (0-7); HEMATOCRIT 34.9 % (42.0-54.0); HEMOGLOBIN 12.2 g/dL (13.5-17.5); MCH 30.6 pg (26.0-34.0); MCV 87.5 fL (80.0-100.0); MEAN PLATELET VOLUME 11.1 fL (7.4-10.4); NEUTROPHILS 71.8 % (40-80); PLATELET COUNT 228 10x3/uL (130-400); RBC 3.99 10x6/uL (4.20-6.10); RDW 13.2 % (11.5-14.5); WBC 19.3 10x3/uL (4.8-10.8)
[2019-02-21 06:32] LABS: ALBUMIN 2.3 g/dL (3.4-5.0); ALKALINE PHOSPHATASE 42 U/L (46-116); ALT (SGPT) 53 U/L (10-68); BILIRUBIN - TOTAL 0.69 mg/dL (0.2-1.3); CALC OSMOLALITY 275 mosm/kg (275-300); CALCIUM 8.1 mg/dL (8.5-10.1); CARBON DIOXIDE 23.9 mmol/L (21.0-32.0); CHLORIDE - SERUM 99 mmol/L (98-107); CREATININE - SERUM 0.8 mg/dL (0.6-1.3); GLUCOSE 275 mg/dL (74-106); MAGNESIUM - SERUM 1.9 mg/dL (1.8-2.4); PHOSPHOROUS 2.9 mg/dL (2.5-4.9); POTASSIUM - SERUM 3.3 mmol/L (3.5-5.1); PROTEIN - SERUM 5.9 g/dL (6.4-8.2); SODIUM 131 mmol/L (136-145); UREA NITROGEN 22 mg/dL (7-18); eGFR NON AFRICAN AMERICAN > 90 mL/min (90-120)
--- NOTE | 2019-02-21 07:30 | NUR ---
INITIAL ROUNDING, BEDSIDE SHIFT REPORT COMPLETE. WHITE BOARD UPDATED. PATIENT IS AWAKE AND SITTING ON THE SIDE OF THE BED STATING "IM GOING TO SHAVE AND SHOWER NOW, HE HAS REMOVED HIS TELE MONITOR, THE O2 CANULA IS NOT IN PLACE. CALL MARLO IN REACH
[2019-02-21 09:06] VITALS: BP 143/68
[2019-02-21 11:39] LABS: POTASSIUM - SERUM 3.4 mmol/L (3.5-5.1); VANCOMYCIN - TROUGH 10.5 ug/mL (10.0-20.0)
--- NOTE | 2019-02-21 14:58 | NUR ---
MORIS VALDEZ HERE TO SEE THE PATIENT. PATIENT IS REQUESTING SOMETHING TO STOP THE DIARRHEA.
--- NOTE | 2019-02-21 19:52 | NUR ---
PT ALERT AND ORIENTED X4 SITTING UP IN BED. PT HARD OF HEARING. RR EVEN AND UNLABORED. PT DENIES ANY PAIN OR NEEDS AT THIS TIME. BED LOW CALL LIGHT WITHIN REACH. WILL CONTINUE TO MONITOR.
[2019-02-21 20:00] VITALS: BP 103/64
[2019-02-22 00:14] VITALS: BP 135/63
--- NOTE | 2019-02-22 02:59 | NUR ---
I have reviewed this patient and I concur with the Shift Assessment completed by the Licensed Practical Nurse today this shift.
[2019-02-22 04:15] VITALS: BP 138/74
--- NOTE | 2019-02-22 04:16 | NUR ---
PT 22G IV INFILTRATED AND DC'D WITH CATHETER TIP IN PLACE. NO SWELLING OR REDNESS SEEN. PT REFUSES ANOTHER IV. PT STATES HE IS GOING HOME TODAY HIS WILL BE HERE SOON WITH HIS COFFEE. PT TOOK O2 OFF AND SAID HE WAS GOING TO LEAVE IT OFF FOR AWHILE. O2-92%. CONTINUESLY MONTITORING. RR EVEN AND UNLABORED. CALL LIGHT WITHIN REACH.
[2019-02-22 04:30] LABS: BASOPHILS 0.3 % (0-2); EOSINOPHILS 0.1 % (0-7); HEMATOCRIT 38.2 % (42.0-54.0); HEMOGLOBIN 13.4 g/dL (13.5-17.5); IMMATURE GRANULOCYTES 14.3 % (0-5); LYMPHOCYTES 9.1 % (15-50); MCH 30.8 pg (26.0-34.0); MCHC 35.1 g/dL (31.0-37.0); MCV 87.8 fL (80.0-100.0); MONOCYTES 5.5 % (2-11); NEUTROPHILS 70.7 % (40-80); PLATELET COUNT 258 10x3/uL (130-400); RBC 4.35 10x6/uL (4.20-6.10); RDW 13.3 % (11.5-14.5); WBC 18.7 10x3/uL (4.8-10.8)
[2019-02-22 04:38] LABS: ALBUMIN 2.3 g/dL (3.4-5.0); ALKALINE PHOSPHATASE 43 U/L (46-116); ALT (SGPT) 62 U/L (10-68); BILIRUBIN - TOTAL 0.88 mg/dL (0.2-1.3); CALC OSMOLALITY 277 mosm/kg (275-300); CALCIUM 7.8 mg/dL (8.5-10.1); CARBON DIOXIDE 23.9 mmol/L (21.0-32.0); CHLORIDE - SERUM 100 mmol/L (98-107); CREATININE - SERUM 0.7 mg/dL (0.6-1.3); GLUCOSE 280 mg/dL (74-106); MAGNESIUM - SERUM 1.8 mg/dL (1.8-2.4); PHOSPHOROUS 2.7 mg/dL (2.5-4.9); SODIUM 133 mmol/L (136-145); UREA NITROGEN 17 mg/dL (7-18); eGFR NON AFRICAN AMERICAN > 90 mL/min (90-120)
[2019-02-22 07:33] VITALS: BP 153/72
--- NOTE | 2019-02-22 07:50 | NUR ---
INITIAL ROUNDING, BEDSIDE SHIFT REPORT COMPLETE, WHITE BOARD UPDATED. PATIENT IS AWAKE AND EATING BREAKFAST, DRESSED AND STATING HE IS READY TO GO HOME. HE HAS NO IV AND REFUSES TO HAVE ANOTHER PLACED, STATED "DONT NEED THAT, I FEEL GOOD". SPOUSE IS HERE AT BEDSIDE. O2 IN PLACE, CONT PULSE OX ON, CALL LIGHT IN REACH
[2019-02-22 11:16] VITALS: BP 158/70
--- NOTE | 2019-02-22 11:49 | NUR ---
CALLED AND SPOKE WITH MORIS RENTERIA AND INFORMED HER THE PATIENT DOES NOT HAVE IV AND REFUSES TO ALLOW ANOTHER ONE PLACED, AND THAT THE PATIENT IN WANTING TO BE DISCHARGED NOW. DEXTER INSTRUCTED ME TO CALL PULMONARY AND SEE IF HE CAN BE DISCHARGED.
--- NOTE | 2019-02-22 15:01 | MORECARE ---
CASE MANAGEMENT DISCHARGE SUMMARY PATIENT: SARBJIT PUGA UNIT: [id number] ADM DATE: 02/16/19 AGE: 73 : 43 SEX: M ROOM/BED: D.7861 AUTHOR: JAYLONDOC PHYSICIAN: REFERRING PHYSICIAN: ANTONIO THAKKAR MD DATE OF SERVICE: 02/22/19 Discharge Plan Patient Name: SARBJIT PUGA Facility: [facility]:[place] : 1945 Planned Disposition: Home with Home Health Anticipated Discharge Date: 02/22/19 Discharge Date: Expected LOS: 6 Initial Reviewer: [id number] Initial Review Date: 02/19/2019 Generated: 02/22/19 4:01 pm Comments DCP- Discharge Planning Updated by [id number]: Srabjit Hawkins on 02/19/19 3:[address] Patient Name: SARBJIT PUGA Admission Status: ER Accout number: [id number] Admission Date: 02-16-2019 : 1945 Admission Diagnosis:SEPSIS, UNSPECIFIED ORGANISM Attending: ANTONIO THAKKAR Current LOS: 3 Anticipated DC Date: Planned Disposition: Home Primary Insurance: [facility] MEDICARE SOLUTIONS Discharge Planning Comments: CM MET WITH PT IN ROOM TO DISCUSS DISCHARGE PLANNING AND NEEDS. PT REPORTS LIVING AT HOME INDEPENDENTLY WITH HIS . PT HAS NO MEDICAL EQUIPMENT AND NO OUTSIDE SERVICES ASSISTING IN THE HOME. CM DISCUSSED AVAILABILITY OF HOME HEALTH, REHAB SERVICES AND MEDICAL EQUIPMENT. PT REPORTS UNKNOWN DISCHARGE NEEDS AT THIS TIME, WANTS TO GO HOME WITH AT DISCHARGE. PT REPORTS HIS WILL PICK HIM UP FOR DISCHARGE HOME. PT PLANS TO DISCHARGE HOME WITH SPOUSE, HAS UNKNOWN DISCHARGE NEEDS AT THIS TIME. CM TO FOLLOW AND ASSIST IF NEEDED. Director Case: Sarbjit Hawkins DCPIA - Discharge Planning Initial Assessment Updated by [id number]: Sarbjit Hawkins on 02/19/19 4:34 pm * Is the patient Alert and Oriented? Yes * How many steps to enter\exit or inside your home? NONE * PCP DR. TOMLINSON * Pharmacy [facility] * Preadmission Environment Home with Family * ADLs Independent * Equipment None * Other Equipment NO MEDICAL EQUIPMENT PROVIDER PREFERENCE * List name and contact numbers for known caregivers / representatives who currently or will assist patient after discharge: LAURIE PUGA, SPOUSE, * Verbal permission to speak to the caregivers and representatives has been obtained from the patient. N/A * Community resources currently utilized None * Please name any agencies selected above. NONE * Additional services required to return to the preadmission environment? No * Can the patient safely return to the preadmission environment? Yes * Has this patient been hospitalized within the prior 30 days at any hospital? No External Providers External Provider: [facility] Next Contact Date: 02/22/2019 Service Request Date: Service Type: Resolution: Reviewer: Comments: Last DP export: 02/19/19 3:41 pm Patient Name: SARBJIT PUGA Page [id number] at 1501 All edits/amendments must be made on the electronic document DICTATION DATE: 02/22/19 1501 CLINICAL DOCUMENTATION CONSULTANT: JAMESON 02/22/19 1501 RPT#: [id number] DC DATE: STATUS: ADM IN [facility] [address] [place] [address] END OF REPORT
--- NOTE | 2019-02-22 15:10 | MORECARE ---
CASE MANAGEMENT DISCHARGE SUMMARY PATIENT: SARBJIT PUGA UNIT: [id number] ADM DATE: 02/16/19 AGE: 73 : 43 SEX: M ROOM/BED: D.1483 AUTHOR: JAYLONDOC PHYSICIAN: REFERRING PHYSICIAN: ANTONIO THAKKAR MD DATE OF SERVICE: 02/22/19 Discharge Plan Patient Name: SARBJIT PUGA Facility: [facility]:[place] : 1945 Planned Disposition: Home with Home Health Anticipated Discharge Date: 02/22/19 Discharge Date: Expected LOS: 6 Initial Reviewer: [id number] Initial Review Date: 02/19/2019 Generated: 02/22/19 4:10 pm Comments DCP- Discharge Planning Updated by [id number]: Sarbjit Hawkins on 02/19/19 3:[address] Patient Name: SARBJIT PUGA Admission Status: ER Accout number: [id number] Admission Date: 02-16-2019 : 1945 Admission Diagnosis:SEPSIS, UNSPECIFIED ORGANISM Attending: ANTONIO THAKKAR Current LOS: 3 Anticipated DC Date: Planned Disposition: Home Primary Insurance: [facility] MEDICARE SOLUTIONS Discharge Planning Comments: CM MET WITH PT IN ROOM TO DISCUSS DISCHARGE PLANNING AND NEEDS. PT REPORTS LIVING AT HOME INDEPENDENTLY WITH HIS . PT HAS NO MEDICAL EQUIPMENT AND NO OUTSIDE SERVICES ASSISTING IN THE HOME. CM DISCUSSED AVAILABILITY OF HOME HEALTH, REHAB SERVICES AND MEDICAL EQUIPMENT. PT REPORTS UNKNOWN DISCHARGE NEEDS AT THIS TIME, WANTS TO GO HOME WITH AT DISCHARGE. PT REPORTS HIS WILL PICK HIM UP FOR DISCHARGE HOME. PT PLANS TO DISCHARGE HOME WITH SPOUSE, HAS UNKNOWN DISCHARGE NEEDS AT THIS TIME. CM TO FOLLOW AND ASSIST IF NEEDED. Dock Worker: Sarbjit Hawkins DCPIA - Discharge Planning Initial Assessment Updated by [id number]: Sarbjit Hawkins on 02/19/19 4:34 pm * Is the patient Alert and Oriented? Yes * How many steps to enter\exit or inside your home? NONE * PCP DR. TOMLINSON * Pharmacy [facility] * Preadmission Environment Home with Family * ADLs Independent * Equipment None * Other Equipment NO MEDICAL EQUIPMENT PROVIDER PREFERENCE * List name and contact numbers for known caregivers / representatives who currently or will assist patient after discharge: LAURIE PUGA, SPOUSE, * Verbal permission to speak to the caregivers and representatives has been obtained from the patient. N/A * Community resources currently utilized None * Please name any agencies selected above. NONE * Additional services required to return to the preadmission environment? No * Can the patient safely return to the preadmission environment? Yes * Has this patient been hospitalized within the prior 30 days at any hospital? No External Providers External Provider: [facility] [facility] Next Contact Date: 02/22/2019 Service Request Date: Service Type: Resolution: Reviewer: Comments: Coverage Notice Reviewer: [id number] - Sarbjit Hawkins Notice Issued Date-Time: 02/22/2019 13:55 Notice Type: IM Discharge Notice Notice Delivered To: Family Member Relationship to Patient: Spouse Position Description Manager Name: LAURIE PUGA Delivery Method: HAND - Hand Delivered Patricia Days: Prior Verbal Notification: Recipient Understood Notice: Yes Recipient Signature: Yes Med Rec Note Co-signed by Attending: Coverage Notice Comment: NO HOME HEALTH PROVIDER PREFERENCE NO MEDICAL EQUIPMENT PROVIDER PREFERENCE Last DP export: 02/22/19 2:01 p Patient Name: SARBJIT PUGA Page [id number] at 1510 All edits/amendments must be made on the electronic document DICTATION DATE: 02/22/19 1510 NIGHT MANAGER: JAMESON 02/22/19 1510 RPT#: [id number] DC DATE: STATUS: ADM IN [facility] [address] [place] [address] END OF REPORT
--- NOTE | 2019-02-22 15:18 | MORECARE ---
CASE MANAGEMENT DISCHARGE SUMMARY PATIENT: SARBJIT PUGA UNIT: [id number] ADM DATE: 02/16/19 AGE: 73 : 43 SEX: M ROOM/BED: D.5952 AUTHOR: JAYLONDOC PHYSICIAN: REFERRING PHYSICIAN: ANTONIO THAKKAR MD DATE OF SERVICE: 02/22/19 Discharge Plan Patient Name: SARBJIT PUGA Facility: [facility]:[place] : 1945 Planned Disposition: Home with Home Health Anticipated Discharge Date: 02/22/19 Discharge Date: Expected LOS: 6 Initial Reviewer: [id number] Initial Review Date: 02/19/2019 Generated: 02/22/19 4:18 pm Comments DCP- Discharge Planning Updated by [id number]: Sarbjit Hawkins on 02/22/19 2:[address] Patient Name: SARBJIT PUGA Encounter No: [id number] : 1945 Primary Insurance: [facility] MEDICARE SOLUTIONS Anticipated DC Date: 02-22-2019 Planned Disposition: Home with Home Health External Planned Provider: [facility] DCP follow-up note: CM SPOKE TO DR. LENZ WHO HAS ORDERED WALK TEST FOR HOME AND PORTABLE OXYGEN AND ORDERED NEBULIZER FOR HOME USE. CM MET WITH PT IN ROOM TO DISCUSS DISCHARGE NEEDS AND PLANNING. CM DISCUSSED AVAILABILITY OF HOME HEALTH, REHAB SERVICES AND MEDICAL EQUIPMENT. PT WOULD LIKE HOME HEALTH AND ASKED CM TO SPEAK TO HIS WHEN SHE ARRIVES IN A FEW MINUTES REGARDING HOME HEALTH AND MEDICAL EQUIPMENT PROVIDER CHOICES. SPOUSE TO TRANSPORT HOME AT DISCHARGE. IMPORTANT MESSAGE FROM MEDICARE PROVIDED AND EXPLAINED. PT'S ARRIVED, CM DISCUSSED PROVIDERS FOR HOME HEALTH AND MEDICAL EQUIPMENT, PROVIDED CHOICE LISTING. PT'S SPOUSE HAS NO PREFERENCE ON MEDICAL EQUIPMENT PROVIDER OR HOME HEALTH PROVIDER. CHOICE SIGNED. CM SPOKE TO AILYN OF [facility], WHO ACCEPTED REFERRAL AND TOOK REFERRAL INFORMATION. CM CALLED [facility] PATIENT, , SPOKE TO PATRICIA AND PROVIDED REFERRAL INFORMATION. CM FAXED REFERRAL TO [facility] PATIENT, . PATRICIA ADVISED THEY WILL DELIVER PORTABLE OXYGEN TO HOSPITAL TODAY AND WILL ARRANGE HOME OXYGEN WHEN PT ARRIVES AT HOME AFTER DISCHARGE. PT AND SPOUSE NOTIFIED IN ROOM, BOTH DENIED FURTHER NEEDS FOR DISCHARGE HOME. FOR DISCHARGE, NOTIFY [facility] AT [phone], FAX DISCHARGE INFORMATION TO [facility] AT [phone]. Sarbjit Hawkins, CASE MANAGEMENT DCP- Discharge Planning Updated by [id number]: Sarbjit Hawkins on 02/19/19 3:[address] Patient Name: SARBJIT PUGA Admission Status: ER Accout number: [id number] Admission Date: 02-16-2019 : 1945 Admission Diagnosis:SEPSIS, UNSPECIFIED ORGANISM Attending: ANTONIO THAKKAR Current LOS: 3 Anticipated DC Date: Planned Disposition: Home Primary Insurance: [facility] MEDICARE SOLUTIONS Discharge Planning Comments: CM MET WITH PT IN ROOM TO DISCUSS DISCHARGE PLANNING AND NEEDS. PT REPORTS LIVING AT HOME INDEPENDENTLY WITH HIS . PT HAS NO MEDICAL EQUIPMENT AND NO OUTSIDE SERVICES ASSISTING IN THE HOME. CM DISCUSSED AVAILABILITY OF HOME HEALTH, REHAB SERVICES AND MEDICAL EQUIPMENT. PT REPORTS UNKNOWN DISCHARGE NEEDS AT THIS TIME, WANTS TO GO HOME WITH AT DISCHARGE. PT REPORTS HIS WILL PICK HIM UP FOR DISCHARGE HOME. PT PLANS TO DISCHARGE HOME WITH SPOUSE, HAS UNKNOWN DISCHARGE NEEDS AT THIS TIME. CM TO FOLLOW AND ASSIST IF NEEDED. Tyre Fitter: Sarbjit Hawkins DCPIA - Discharge Planning Initial Assessment Updated by [id number]: Sarbjit Hawkins on 02/19/19 4:34 pm * Is the patient Alert and Oriented? Yes * How many steps to enter\exit or inside your home? NONE * PCP DR. TOMLINSON * Pharmacy [facility] * Preadmission Environment Home with Family * ADLs Independent * Equipment None * Other Equipment NO MEDICAL EQUIPMENT PROVIDER PREFERENCE * List name and contact numbers for known caregivers / representatives who currently or will assist patient after discharge: LAURIE PUGA, SPOUSE, * Verbal permission to speak to the caregivers and representatives has been obtained from the patient. N/A * Community resources currently utilized None * Please name any agencies selected above. NONE * Additional services required to return to the preadmission environment? No * Can the patient safely return to the preadmission environment? Yes * Has this patient been hospitalized within the prior 30 days at any hospital? No Coverage Notice Reviewer: [id number] - Sarbjit Hawkins Notice Issued Date-Time: 02/22/2019 13:55 Notice Type: IM Discharge Notice Notice Delivered To: Family Member Relationship to Patient: Spouse Senior Training Specialist Name: LAURIE PUGA Delivery Method: HAND - Hand Delivered Patricia Days: Prior Verbal Notification: Recipient Understood Notice: Yes Recipient Signature: Yes Med Rec Note Co-signed by Attending: Coverage Notice Comment: NO HOME HEALTH PROVIDER PREFERENCE NO MEDICAL EQUIPMENT PROVIDER PREFERENCE Last DP export: 02/22/19 2:10 p Patient Name: SARBJIT PUGA Page 98921 at 1518 All edits/amendments must be made on the electronic document DICTATION DATE: 02/22/191517 ASSISTANT RESEARCH SCIENTIST: JAMESON 02/22/198 RPT#: [id number] DC DATE: STATUS: ADM IN [facility] [address] [place] [address] END OF REPORT
[2019-02-22 16:07] VITALS: BP 144/73
[2019-02-22 16:08] LABS: IMMUNOGLOBULIN E 40 IU/mL (6-495)
--- NOTE | 2019-02-22 17:13 | MORECARE ---
CASE MANAGEMENT DISCHARGE SUMMARY PATIENT: SARBJIT PUGA UNIT: [id number] ADM DATE: 02/16/19 AGE: 73 : 43 SEX: M ROOM/BED: D.6118 AUTHOR: JAYLONDOC PHYSICIAN: REFERRING PHYSICIAN: ANTONIO THAKKAR MD DATE OF SERVICE: 02/22/19 Discharge Plan Patient Name: SARBJIT PUGA Facility: [facility]:[place] : 1945 Planned Disposition: Home with Home Health Anticipated Discharge Date: 02/22/19 Discharge Date: Expected LOS: 6 Initial Reviewer: [id number] Initial Review Date: 02/19/2019 Generated: 02/22/19 6:13 pm Comments DCP- Discharge Planning Updated by [id number]: Sarbjit Hawkins on 02/22/19 4:[address] Patient Name: SARBJIT PUGA Encounter No: [id number] : 1945 Primary Insurance: [facility] MEDICARE SOLUTIONS Anticipated DC Date: 02-22-2019 Planned Disposition: Home with Home Health External Planned Provider: [facility] DCP follow-up note: CM SPOKE TO DR. LENZ WHO HAS ORDERED WALK TEST FOR HOME AND PORTABLE OXYGEN AND ORDERED NEBULIZER FOR HOME USE. CM MET WITH PT IN ROOM TO DISCUSS DISCHARGE NEEDS AND PLANNING. CM DISCUSSED AVAILABILITY OF HOME HEALTH, REHAB SERVICES AND MEDICAL EQUIPMENT. PT WOULD LIKE HOME HEALTH AND ASKED CM TO SPEAK TO HIS WHEN SHE ARRIVES IN A FEW MINUTES REGARDING HOME HEALTH AND MEDICAL EQUIPMENT PROVIDER CHOICES. SPOUSE TO TRANSPORT HOME AT DISCHARGE. IMPORTANT MESSAGE FROM MEDICARE PROVIDED AND EXPLAINED. PT'S ARRIVED, CM DISCUSSED PROVIDERS FOR HOME HEALTH AND MEDICAL EQUIPMENT, PROVIDED CHOICE LISTING. PT'S SPOUSE HAS NO PREFERENCE ON MEDICAL EQUIPMENT PROVIDER OR HOME HEALTH PROVIDER. CHOICE SIGNED. CM SPOKE TO AILYN OF [facility], WHO ACCEPTED REFERRAL AND TOOK REFERRAL INFORMATION. CM CALLED [facility] PATIENT, , SPOKE TO PATRICIA AND PROVIDED REFERRAL INFORMATION. CM FAXED REFERRAL TO [facility] PATIENT, . PATRICIA ADVISED THEY WILL DELIVER PORTABLE OXYGEN TO HOSPITAL TODAY AND WILL ARRANGE HOME OXYGEN WHEN PT ARRIVES AT HOME AFTER DISCHARGE. PT AND SPOUSE NOTIFIED IN ROOM, BOTH DENIED FURTHER NEEDS FOR DISCHARGE HOME. FOR DISCHARGE, NOTIFY [facility] AT [phone], FAX DISCHARGE INFORMATION TO [facility] AT [phone]. Sarbjit aHwkins, CASE MANAGEMENT Appended by Sarbjit Hawkins on 02/22/2019 17:06 CDT: [facility] RECEIVED CALL FROM PATRICIA OF [facility] PATIENT WHO INFORMED CM THAT PT'S WALK TEST WILL NEED TO BE DONE AGAIN TOMORROW PT HAS DIAGNOSIS OF PNEUMONIA THAT REQUIRES 7 DAYS OF ANTIBIOTICS PRIOR TO WALK TEST RESULTS FOR OXYGEN QUALIFICATION. PT WILL NEED ANOTHER WALK TEST FOR OXYGEN QUALIFICATION 02-23-19, WITH RESULTS FAXED TO [facility] PATIENT. FAX DISCHARGE, NOTIFY [facility] AT [phone], FAX DISCHARGE INFORMATION TO [facility] AT [phone]. Sarbjit Hawkins, CASE MANAGEMENT DCP- Discharge Planning Updated by [id number]: Sarbjit Hawkins on 02/19/19 3:[address] Patient Name: SARBJIT PUGA Admission Status: ER Accout number: [id number] Admission Date: 02-16-2019 : 1945 Admission Diagnosis:SEPSIS, UNSPECIFIED ORGANISM Attending: ANTONIO THAKKAR Current LOS: 3 Anticipated DC Date: Planned Disposition: Home Primary Insurance: [facility] MEDICARE SOLUTIONS Discharge Planning Comments: CM MET WITH PT IN ROOM TO DISCUSS DISCHARGE PLANNING AND NEEDS. PT REPORTS LIVING AT HOME INDEPENDENTLY WITH HIS . PT HAS NO MEDICAL EQUIPMENT AND NO OUTSIDE SERVICES ASSISTING IN THE HOME. CM DISCUSSED AVAILABILITY OF HOME HEALTH, REHAB SERVICES AND MEDICAL EQUIPMENT. PT REPORTS UNKNOWN DISCHARGE NEEDS AT THIS TIME, WANTS TO GO HOME WITH AT DISCHARGE. PT REPORTS HIS WILL PICK HIM UP FOR DISCHARGE HOME. PT PLANS TO DISCHARGE HOME WITH SPOUSE, HAS UNKNOWN DISCHARGE NEEDS AT THIS TIME. CM TO FOLLOW AND ASSIST IF NEEDED. Environmental Health Technician: Sarbjit Hawkins DCPIA - Discharge Planning Initial Assessment Updated by [id number]: Sarbjit Hawkins on 02/19/19 4:34 pm * Is the patient Alert and Oriented? Yes * How many steps to enter\exit or inside your home? NONE * PCP DR. TOMLINSON * [facility]acy [facility] * Preadmission Environment Home with Family * ADLs Independent * Equipment None * Other Equipment NO MEDICAL EQUIPMENT PROVIDER PREFERENCE * List name and contact numbers for known caregivers / representatives who currently or will assist patient after discharge: LAURIE PUGA, SPOUSE, * Verbal permission to speak to the caregivers and representatives has been obtained from the patient. N/A * Community resources currently utilized None * Please name any agencies selected above. NONE * Additional services required to return to the preadmission environment? No * Can the patient safely return to the preadmission environment? Yes * Has this patient been hospitalized within the prior 30 days at any hospital? No Coverage Notice Reviewer: [id number] Theo Hawkins Notice Issued Date-Time: 02/22/2019 13:55 Notice Type: IM Discharge Notice Notice Delivered To: Family Member Relationship to Patient: Spouse Clinical Informatics Specialist Name: LAURIE PUGA Delivery Method: HAND - Hand Delivered Patricia Days: Prior Verbal Notification: Recipient Understood Notice: Yes Recipient Signature: Yes Med Rec Note Co-signed by Attending: Coverage Notice Comment: NO HOME HEALTH PROVIDER PREFERENCE NO MEDICAL EQUIPMENT PROVIDER PREFERENCE Last DP export: 02/22/19 2:18 p Patient Name: SARBJIT PUGA Page 25550 at 1713 All edits/amendments must be made on the electronic document DICTATION DATE: 02/22/191711 TECHNICAL ASSOCIATE: JAMESON 02/22/191711 RPT#: [id number] DC DATE: STATUS: ADM IN [facility] [address] [place] [address] END OF REPORT
--- NOTE | 2019-02-22 17:35 | NUR ---
OT NOTE:PT COMPLETED EOB SITTING WITH MOD I. PT COMPLETED ADL MOB WITH SPV/MOD I . PT COMPLETED BUE AROM EXS. PT COMPLETED TOILET TASK WITH SPV. THANK YOU, REYMUNDO WANG
--- NOTE | 2019-02-22 19:48 | NUR ---
PT LYING IN BED. CL IN REACH. DENIES NEEDS AT THIS TIME. BED IN LOW SIDE RAILS X2. VERY [place]. BED IN LOW SIDE RAILS X2. RESP EVEN AND UNLABORED. O2 ON 2L. LUNGS DIMINISHED. A/O X4. WILL CONTINUE TO MONITOR.
[2019-02-22 20:00] VITALS: BP 145/74
[2019-02-23 00:02] VITALS: BP 128/68
--- NOTE | 2019-02-23 03:26 | NUR ---
I have reviewed this patient and I concur with the Shift Assessment completed by the Licensed Practical Nurse today this shift.
[2019-02-23 04:08] VITALS: BP 134/69
--- NOTE | 2019-02-23 05:37 | NUR ---
PT AWAKE LYING IN BED. DENIES NEEDS AT THIS TIME. CL IN REACH. WILL CONTINUE TO MONITOR. FSBS 215 BUT PT IS NPO FOR EGD TODAY. NO INSULIN WILL BE ADMINISTERED
[2019-02-23 07:18] LABS: CALC OSMOLALITY 275 mosm/kg (275-300); CALCIUM 8.1 mg/dL (8.5-10.1); CARBON DIOXIDE 22.6 mmol/L (21.0-32.0); CHLORIDE - SERUM 98 mmol/L (98-107); CREATININE - SERUM 0.8 mg/dL (0.6-1.3); MAGNESIUM - SERUM 1.7 mg/dL (1.8-2.4); PHOSPHOROUS 3.1 mg/dL (2.5-4.9); POTASSIUM - SERUM 3.8 mmol/L (3.5-5.1); SODIUM 134 mmol/L (136-145); UREA NITROGEN 16 mg/dL (7-18); eGFR NON AFRICAN AMERICAN > 90 mL/min (90-120)
[2019-02-23 07:23] LABS: GLUCOSE 219 mg/dL (74-106)
--- NOTE | 2019-02-23 07:24 | NUR ---
REPORT RECEIVED. WILL CONTINUE WITH POC. PT CURRENTLY LYING SUPINE. CALL LIGHT W/I REACH. FAMILY AT BEDSIDE. RR EVEN AND UNLABORED ON 2L 02. NO PIV NOTED. PT IS NPO FOR EGD TODAY. NO S/S OF DISTRESS NOTED. PT DENIES ANY NEEDS. WILL CTM.
[2019-02-23 07:25] LABS: HEMATOCRIT 41.2 % (42.0-54.0); HEMOGLOBIN 14.6 g/dL (13.5-17.5); MCH 31.1 pg (26.0-34.0); MCHC 35.4 g/dL (31.0-37.0); MCV 87.7 fL (80.0-100.0); MEAN PLATELET VOLUME 11.1 fL (7.4-10.4); PLATELET COUNT 273 10x3/uL (130-400); RDW 13.5 % (11.5-14.5); WBC 21.5 10x3/uL (4.8-10.8)
[2019-02-23 07:55] VITALS: BP 123/70
--- NOTE | 2019-02-23 10:36 | NUR ---
PIV INITIATED TO THE RIGHT HAND 22GA X1 ATTEMPT. PT TOLERATED WELL. WILL CTM.
[2019-02-23 10:44] LABS: EOSINOPHILS 2 % (0-7); LYMPHOCYTES 13 % (15-50); MONOCYTES 14 % (2-11); NEUTROPHILS 65 % (40-80); PLATELET ESTIMATE NORMAL; ROULEAUX OCC
[2019-02-23 12:25] VITALS: BP 135/76
--- NOTE | 2019-02-23 12:34 | NUR ---
PREOP MEDICATIONS ADMINISTERED PER GI LAB REQUEST. WILL CTM.
--- NOTE | 2019-02-23 12:38 | MORECARE ---
CASE MANAGEMENT DISCHARGE SUMMARY PATIENT: SARBJIT PUGA UNIT: [id number] ADM DATE: 02/16/19 AGE: 73 : 43 SEX: M ROOM/BED: D.7871 AUTHOR: JAYLONDOC PHYSICIAN: REFERRING PHYSICIAN: ANTONIO THAKKAR MD DATE OF SERVICE: 02/23/19 Discharge Plan Patient Name: SARBJIT PUGA Facility: [facility]:[place] : 1945 Planned Disposition: Home with Home Health Anticipated Discharge Date: 02/23/19 Discharge Date: Expected LOS: 7 Initial Reviewer: [id number] Initial Review Date: 02/19/2019 Generated: 02/23/19 1:38 pm Comments DCP- Discharge Planning Updated by [id number]: Sarbjit Hawkins on 02/23/19 11:[address] Patient Name: SARBJIT PUGA Encounter No: [id number] : 1945 Primary Insurance: [facility] MEDICARE SOLUTIONS Anticipated DC Date: 02-23-2019 Planned Disposition: Home with Home Health External Planned Provider: [facility] DCP follow-up note: CM RECEIVED NEW OXYGEN TESTING, PT 94% ON ROOM AIR AT REST, 90% ON ROOM AIR WITH EXERTION. PT DOES NOT QUALIFY FOR OXYGEN. CM CALLED AND NOTIFIED PATRICIA AT [facility] PATIENT, . [facility] PATIENT TO DELIVER NEBULIZER TO PT'S ROOM FOR DISCHARGE HOME TODAY. CM SPOKE TO PT AND SPOUSE IN ROOM, NOTIFIED OF ABOVE INFORMATION, BOTH DENY FURTHER DISCHARGE NEEDS. FOR DISCHARGE NOTIFY [facility] AT [phone], FAX DISCHARGE INFORMATION TO [facility] AT [phone]. Sarbjit Hawkins, CASE MANAGEMENT DCP- Discharge Planning Updated by [id number]: Sarbjit Hawkins on 02/22/19 4:[address] Patient Name: SARBJIT PUGA Encounter No: [id number] : 1945 Primary Insurance: [facility] MEDICARE SOLUTIONS Anticipated DC Date: 02-22-2019 Planned Disposition: Home with Home Health External Planned Provider: [facility] DCP follow-up note: CM SPOKE TO DR. LENZ WHO HAS ORDERED WALK TEST FOR HOME AND PORTABLE OXYGEN AND ORDERED NEBULIZER FOR HOME USE. CM MET WITH PT IN ROOM TO DISCUSS DISCHARGE NEEDS AND PLANNING. CM DISCUSSED AVAILABILITY OF HOME HEALTH, REHAB SERVICES AND MEDICAL EQUIPMENT. PT WOULD LIKE HOME HEALTH AND ASKED CM TO SPEAK TO HIS WHEN SHE ARRIVES IN A FEW MINUTES REGARDING HOME HEALTH AND MEDICAL EQUIPMENT PROVIDER CHOICES. SPOUSE TO TRANSPORT HOME AT DISCHARGE. IMPORTANT MESSAGE FROM MEDICARE PROVIDED AND EXPLAINED. PT'S ARRIVED, CM DISCUSSED PROVIDERS FOR HOME HEALTH AND MEDICAL EQUIPMENT, PROVIDED CHOICE LISTING. PT'S SPOUSE HAS NO PREFERENCE ON MEDICAL EQUIPMENT PROVIDER OR HOME HEALTH PROVIDER. CHOICE SIGNED. CM SPOKE TO AILYN OF [facility], WHO ACCEPTED REFERRAL AND TOOK REFERRAL INFORMATION. CM CALLED [facility] PATIENT, , SPOKE TO PATRICIA AND PROVIDED REFERRAL INFORMATION. CM FAXED REFERRAL TO [facility] PATIENT, . PATRICIA ADVISED THEY WILL DELIVER PORTABLE OXYGEN TO HOSPITAL TODAY AND WILL ARRANGE HOME OXYGEN WHEN PT ARRIVES AT HOME AFTER DISCHARGE. PT AND SPOUSE NOTIFIED IN ROOM, BOTH DENIED FURTHER NEEDS FOR DISCHARGE HOME. FOR DISCHARGE, NOTIFY [facility] AT [phone], FAX DISCHARGE INFORMATION TO [facility] AT [phone]. Sarbjit Hawkins, CASE MANAGEMENT Appended by Sarbjit Hawkins on 02/22/2019 17:06 CDT: FCM RECEIVED CALL FROM PATRICIA OF [facility] PATIENT WHO INFORMED CM THAT PT'S WALK TEST WILL NEED TO BE DONE AGAIN TOMORROW PT HAS DIAGNOSIS OF PNEUMONIA THAT REQUIRES 7 DAYS OF ANTIBIOTICS PRIOR TO WALK TEST RESULTS FOR OXYGEN QUALIFICATION. PT WILL NEED ANOTHER WALK TEST FOR OXYGEN QUALIFICATION 02-23-19, WITH RESULTS FAXED TO [facility] PATIENT. FAX DISCHARGE, NOTIFY [facility] AT [phone], FAX DISCHARGE INFORMATION TO [facility] AT [phone]. Sarbjit Hawkins, CASE MANAGEMENT DCP- Discharge Planning Updated by [id number]: Sarbjit Hawkins on 02/19/19 3:[address] Patient Name: SARBJIT PUGA Admission Status: ER Accout number: [id number] Admission Date: 02-16-2019 : 1945 Admission Diagnosis:SEPSIS, UNSPECIFIED ORGANISM Attending: ANTONIO THAKKAR Current LOS: 3 Anticipated DC Date: Planned Disposition: Home Primary Insurance: [facility] MEDICARE SOLUTIONS Discharge Planning Comments: CM MET WITH PT IN ROOM TO DISCUSS DISCHARGE PLANNING AND NEEDS. PT REPORTS LIVING AT HOME INDEPENDENTLY WITH HIS . PT HAS NO MEDICAL EQUIPMENT AND NO OUTSIDE SERVICES ASSISTING IN THE HOME. CM DISCUSSED AVAILABILITY OF HOME HEALTH, REHAB SERVICES AND MEDICAL EQUIPMENT. PT REPORTS UNKNOWN DISCHARGE NEEDS AT THIS TIME, WANTS TO GO HOME WITH AT DISCHARGE. PT REPORTS HIS WILL PICK HIM UP FOR DISCHARGE HOME. PT PLANS TO DISCHARGE HOME WITH SPOUSE, HAS UNKNOWN DISCHARGE NEEDS AT THIS TIME. CM TO FOLLOW AND ASSIST IF NEEDED. Named Account Executive: Sarbjit Hawkins DCPIA - Discharge Planning Initial Assessment Updated by [id number]: Sarbjit Hawkins on 02/19/19 4:34 pm * Is the patient Alert and Oriented? Yes * How many steps to enter\exit or inside your home? NONE * PCP DR. TOMLINSON * Pharmacy [facility] * Preadmission Environment Home with Family * ADLs Independent * Equipment None * Other Equipment NO MEDICAL EQUIPMENT PROVIDER PREFERENCE * List name and contact numbers for known caregivers / representatives who currently or will assist patient after discharge: LAURIE PUGA, SPOUSE, * Verbal permission to speak to the caregivers and representatives has been obtained from the patient. N/A * Community resources currently utilized None * Please name any agencies selected above. NONE * Additional services required to return to the preadmission environment? No * Can the patient safely return to the preadmission environment? Yes * Has this patient been hospitalized within the prior 30 days at any hospital? No Coverage Notice Reviewer: [id number] - Sarbjit Hawkins Notice Issued Date-Time: 02/22/2019 13:55 Notice Type: IM Discharge Notice Notice Delivered To: Family Member Relationship to Patient: Spouse Oven Worker Name: LAURIE PUGA Delivery Method: HAND - Hand Delivered Patricia Days: Prior Verbal Notification: Recipient Understood Notice: Yes Recipient Signature: Yes Med Rec Note Co-signed by Attending: Coverage Notice Comment: NO HOME HEALTH PROVIDER PREFERENCE NO MEDICAL EQUIPMENT PROVIDER PREFERENCE Last DP export: 02/22/19 4:13 p Patient Name: SARBJIT PUGA Page 40896 at 1238 All edits/amendments must be made on the electronic document DICTATION DATE: 02/23/19 1238 LABOR CUSTODIAN: JAMESON 02/23/19 1238 RPT#: [id number] DC DATE: STATUS: ADM IN [facility] [address] [place] [address] END OF REPORT
[2019-02-23 14:46] VITALS: BP 121/66
--- NOTE | 2019-02-23 15:15 | NUR ---
I have reviewed this patient and I concur with the Shift Assessment completed by the Licensed Practical Nurse today this shift.
--- NOTE | 2019-02-23 16:13 | NUR ---
OT NOTE: PT COMPLETED TOILETING TASKS WITH SPV/MOD I. PT COMPLETED ADL MOB WITH SPV. THANK YOU, REYMUNDO WANG
[2019-02-23 20:00] VITALS: BP 136/70
[2019-02-24] VITALS: BP 139/66
[2019-02-24 04:00] VITALS: BP 108/65
[2019-02-24 05:43] LABS: BASOPHILS 0.1 % (0-2); EOSINOPHILS 0.5 % (0-7); HEMATOCRIT 37.3 % (42.0-54.0); HEMOGLOBIN 13.1 g/dL (13.5-17.5); LYMPHOCYTES 10.8 % (15-50); MCHC 35.1 g/dL (31.0-37.0); MCV 88.4 fL (80.0-100.0); MEAN PLATELET VOLUME 10.5 fL (7.4-10.4); MONOCYTES 4.4 % (2-11); NEUTROPHILS 81.2 % (40-80); PLATELET COUNT 236 10x3/uL (130-400); RBC 4.22 10x6/uL (4.20-6.10); RDW 13.5 % (11.5-14.5)
[2019-02-24 05:56] LABS: CALC OSMOLALITY 280 mosm/kg (275-300); CALCIUM 7.5 mg/dL (8.5-10.1); CARBON DIOXIDE 21.6 mmol/L (21.0-32.0); CHLORIDE - SERUM 101 mmol/L (98-107); CREATININE - SERUM 0.9 mg/dL (0.6-1.3); POTASSIUM - SERUM 3.5 mmol/L (3.5-5.1); SODIUM 134 mmol/L (136-145); UREA NITROGEN 14 mg/dL (7-18); eGFR NON AFRICAN AMERICAN 87 mL/min (90-120)
[2019-02-24 05:57] LABS: GLUCOSE 306 mg/dL (74-106)
[2019-02-24 06:38] LABS: WBC 15.2 10x3/uL (4.8-10.8)
--- NOTE | 2019-02-24 07:50 | NUR ---
REPORT RECEIVED. WILL CONTINUE WITH POC.PT CURRENTLY UP WALKING WITH . RR EVEN AND UNLABORED ON 2L 02. R.HAND PIV IS SALINE LOCKED. PT DENIES ANY NEEDS AT THIS TIME. NO S/S OF DISTRESS NOTED. WILL CTM.
[2019-02-24 07:58] VITALS: BP 131/72
[2019-02-24] MEDS ORDERED: OMNICEF300 MG PO (09:38)
[2019-02-24] MEDS ORDERED: PULMICORT0.5 MG/21 UPD (09:39)
[2019-02-24] MEDS ORDERED: HCTZ25 MG PO (09:39)
[2019-02-24] MEDS ORDERED: DIFLUCAN100 MG PO (09:39)
[2019-02-24] MEDS ORDERED: SINGULAIR10 MG PO (09:40)
[2019-02-24] MEDS ORDERED: CARAFATE1 G PO (09:40)
[2019-02-24] MEDS ORDERED: PROTONIX40 MG PO (09:40)
[2019-02-24] MEDS ORDERED: FLUTICASONE PRO16 GM NASAL (09:40)
[2019-02-24] MEDS ORDERED: PREDNISONE20 MG PO (09:41)
--- NOTE | 2019-02-24 10:18 | NUR ---
SPOKE WITH DEXTER DAVID APN, RE DC RX OF HCTZ. PT ALREADY ON ZESTORETIC. PER DEXTER WILL D/C HCTZ.
--- NOTE | 2019-02-24 10:58 | NUR ---
PT DISCHARGED HOME VIA WHEELCHAIR. PT SIGNED PROPER DISCHARGE INSTRUCTION AND REMOVED ALL VALUABLES FROM THE ROOM. TELEMETRY REMOVED AND RETURNED. PIV REMOVED WITH CATHETER TIP FULLY INTACT.
--- NOTE | 2019-02-24 16:25 | MORECARE ---
CASE MANAGEMENT DISCHARGE SUMMARY PATIENT: SARBJIT PUGA UNIT: [id number] ADM DATE: 02/16/19 AGE: 73 : 43 SEX: M ROOM/BED: D.2738 AUTHOR: JAYLONDOC PHYSICIAN: REFERRING PHYSICIAN: ANTONIO THAKKAR MD DATE OF SERVICE: 02/24/19 Discharge Plan Patient Name: SARBJIT PUGA Facility: [facility]:[place] : 1945 Planned Disposition: Home with Home Health Anticipated Discharge Date: 02/24/19 Discharge Date: 02/24/2019 Expected LOS: 8 Initial Reviewer: [id number] Initial Review Date: 02/19/2019 Generated: 02/24/19 5:25 pm Comments DCP- Discharge Planning Updated by [id number]: Sarbjit Hawkins on 02/23/19 11:[address] Patient Name: SARBJIT PUGA Encounter No: [id number] : 1945 Primary Insurance: [facility] MEDICARE SOLUTIONS Anticipated DC Date: 02-23-2019 Planned Disposition: Home with Home Health External Planned Provider: [facility] DCP follow-up note: CM RECEIVED NEW OXYGEN TESTING, PT 94% ON ROOM AIR AT REST, 90% ON ROOM AIR WITH EXERTION. PT DOES NOT QUALIFY FOR OXYGEN. CM CALLED AND NOTIFIED PATRICIA AT [facility] PATIENT, . [facility] PATIENT TO DELIVER NEBULIZER TO PT'S ROOM FOR DISCHARGE HOME TODAY. CM SPOKE TO PT AND SPOUSE IN ROOM, NOTIFIED OF ABOVE INFORMATION, BOTH DENY FURTHER DISCHARGE NEEDS. FOR DISCHARGE NOTIFY [facility] AT [phone], FAX DISCHARGE INFORMATION TO [facility] AT [phone]. Sarbjit Hawkins, CASE MANAGEMENT DCP- Discharge Planning Updated by [id number]: Sarbjit Hawkins on 02/22/19 4:[address] Patient Name: SARBJIT PUGA Encounter No: [id number] : 1945 Primary Insurance: [facility] MEDICARE SOLUTIONS Anticipated DC Date: 02-22-2019 Planned Disposition: Home with Home Health External Planned Provider: [facility] DCP follow-up note: CM SPOKE TO DR. LENZ WHO HAS ORDERED WALK TEST FOR HOME AND PORTABLE OXYGEN AND ORDERED NEBULIZER FOR HOME USE. CM MET WITH PT IN ROOM TO DISCUSS DISCHARGE NEEDS AND PLANNING. CM DISCUSSED AVAILABILITY OF HOME HEALTH, REHAB SERVICES AND MEDICAL EQUIPMENT. PT WOULD LIKE HOME HEALTH AND ASKED CM TO SPEAK TO HIS WHEN SHE ARRIVES IN A FEW MINUTES REGARDING HOME HEALTH AND MEDICAL EQUIPMENT PROVIDER CHOICES. SPOUSE TO TRANSPORT HOME AT DISCHARGE. IMPORTANT MESSAGE FROM MEDICARE PROVIDED AND EXPLAINED. PT'S ARRIVED, CM DISCUSSED PROVIDERS FOR HOME HEALTH AND MEDICAL EQUIPMENT, PROVIDED CHOICE LISTING. PT'S SPOUSE HAS NO PREFERENCE ON MEDICAL EQUIPMENT PROVIDER OR HOME HEALTH PROVIDER. CHOICE SIGNED. CM SPOKE TO AILYN OF [facility], WHO ACCEPTED REFERRAL AND TOOK REFERRAL INFORMATION. CM CALLED [facility] PATIENT, , SPOKE TO PATRICIA AND PROVIDED REFERRAL INFORMATION. CM FAXED REFERRAL TO [facility] PATIENT, . PATRICIA ADVISED THEY WILL DELIVER PORTABLE OXYGEN TO HOSPITAL TODAY AND WILL ARRANGE HOME OXYGEN WHEN PT ARRIVES AT HOME AFTER DISCHARGE. PT AND SPOUSE NOTIFIED IN ROOM, BOTH DENIED FURTHER NEEDS FOR DISCHARGE HOME. FOR DISCHARGE, NOTIFY [facility] AT [phone], FAX DISCHARGE INFORMATION TO [facility] AT [phone]. Sarbjit Hawkins, CASE MANAGEMENT Appended by Sarbjit Hawkins on 02/22/2019 17:06 CDT: FCM RECEIVED CALL FROM PATRICIA OF [facility] PATIENT WHO INFORMED CM THAT PT'S WALK TEST WILL NEED TO BE DONE AGAIN TOMORROW PT HAS DIAGNOSIS OF PNEUMONIA THAT REQUIRES 7 DAYS OF ANTIBIOTICS PRIOR TO WALK TEST RESULTS FOR OXYGEN QUALIFICATION. PT WILL NEED ANOTHER WALK TEST FOR OXYGEN QUALIFICATION 02-23-19, WITH RESULTS FAXED TO [facility] PATIENT. FAX DISCHARGE, NOTIFY [facility] AT [phone], FAX DISCHARGE INFORMATION TO [facility] AT [phone]. Sarbjit Hawkins, CASE MANAGEMENT DCP- Discharge Planning Updated by [id number]: Sarbjit Hawkins on 02/19/19 3:[address] Patient Name: SARBJIT PUGA Admission Status: ER Accout number: [id number] Admission Date: 02-16-2019 : 1945 Admission Diagnosis:SEPSIS, UNSPECIFIED ORGANISM Attending: ANTONIO THAKKAR Current LOS: 3 Anticipated DC Date: Planned Disposition: Home Primary Insurance: [facility] MEDICARE SOLUTIONS Discharge Planning Comments: CM MET WITH PT IN ROOM TO DISCUSS DISCHARGE PLANNING AND NEEDS. PT REPORTS LIVING AT HOME INDEPENDENTLY WITH HIS . PT HAS NO MEDICAL EQUIPMENT AND NO OUTSIDE SERVICES ASSISTING IN THE HOME. CM DISCUSSED AVAILABILITY OF HOME HEALTH, REHAB SERVICES AND MEDICAL EQUIPMENT. PT REPORTS UNKNOWN DISCHARGE NEEDS AT THIS TIME, WANTS TO GO HOME WITH AT DISCHARGE. PT REPORTS HIS WILL PICK HIM UP FOR DISCHARGE HOME. PT PLANS TO DISCHARGE HOME WITH SPOUSE, HAS UNKNOWN DISCHARGE NEEDS AT THIS TIME. CM TO FOLLOW AND ASSIST IF NEEDED. Unit Supervisor: Sarbjit Hawkins DCPIA - Discharge Planning Initial Assessment Updated by [id number]: Sarbjit Hawkins on 02/19/19 4:34 pm * Is the patient Alert and Oriented? Yes * How many steps to enter\exit or inside your home? NONE * PCP DR. TOMLINSON * Pharmacy [facility] * Preadmission Environment Home with Family * ADLs Independent * Equipment None * Other Equipment NO MEDICAL EQUIPMENT PROVIDER PREFERENCE * List name and contact numbers for known caregivers / representatives who currently or will assist patient after discharge: LAURIE PUGA, SPOUSE, * Verbal permission to speak to the caregivers and representatives has been obtained from the patient. N/A * Community resources currently utilized None * Please name any agencies selected above. NONE * Additional services required to return to the preadmission environment? No * Can the patient safely return to the preadmission environment? Yes * Has this patient been hospitalized within the prior 30 days at any hospital? No Coverage Notice Reviewer: [id number] - Sarbjit Hawkins Notice Issued Date-Time: 02/22/2019 13:55 Notice Type: IM Discharge Notice Notice Delivered To: Family Member Relationship to Patient: Spouse Fruit Worker Name: LAURIE PUGA Delivery Method: HAND - Hand Delivered Patricia Days: Prior Verbal Notification: Recipient Understood Notice: Yes Recipient Signature: Yes Med Rec Note Co-signed by Attending: Coverage Notice Comment: NO HOME HEALTH PROVIDER PREFERENCE NO MEDICAL EQUIPMENT PROVIDER PREFERENCE Last DP export: 02/23/19 11:38 a Patient Name: SARBJIT PUGA Page 49380 at 7800 All edits/amendments must be made on the electronic document DICTATION DATE: 02/24/19 1626 MASONRY CONTRACTOR ADMINISTRATOR: JAMESON 02/24/19 1625 RPT#: [id number] DC DATE:02/24/19 STATUS: DIS IN [facility] [address] [place] [address] END OF REPORT
--- NOTE | 2019-02-24 16:33 | MORECARE ---
CASE MANAGEMENT DISCHARGE SUMMARY PATIENT: SARBJIT PUGA UNIT: [id number] ADM DATE: 02/16/19 AGE: 73 : 43 SEX: M ROOM/BED: D.2542 AUTHOR: JAYLONDOC PHYSICIAN: REFERRING PHYSICIAN: ANTONIO THAKKAR MD DATE OF SERVICE: 02/24/19 Discharge Plan Patient Name: SARBJIT PUGA Facility: [facility]:[place] : 1945 Planned Disposition: Home with Home Health Anticipated Discharge Date: 02/24/19 Discharge Date: 02/24/2019 Expected LOS: 8 Initial Reviewer: [id number] Initial Review Date: 02/19/2019 Generated: 02/24/19 5:33 pm Comments DCP- Discharge Planning Updated by [id number]: Sarbjit Hawkins on 02/24/19 3:[address] Patient Name: SARBJIT PUGA Encounter No: [id number] : 1945 Primary Insurance: [facility] MEDICARE SOLUTIONS Anticipated DC Date: 02-24-2019 Planned Disposition: Home with Home Health External Planned Provider: [facility] DCP follow-up note: CM RECEIVED DISCHARGE ORDER. CM CALLED AND NOTIFIED MALIA OF [facility] AT [phone], FAXED DISCHARGE INFORMATION TO [facility] AT [phone]. Sarbjit Hawkins CASE MANAGEMENT DCP- Discharge Planning Updated by [id number]: Sarbjit Hawkins on 02/23/19 11:[address] Patient Name: SARBJIT PUGA Encounter No: [id number] : 1945 Primary Insurance: [facility] [employer] Anticipated DC Date: 02-23-2019 Planned Disposition: Home with Home Health External Planned Provider: [facility] DCP follow-up note: CM RECEIVED NEW OXYGEN TESTING, PT 94% ON ROOM AIR AT REST, 90% ON ROOM AIR WITH EXERTION. PT DOES NOT QUALIFY FOR OXYGEN. CM CALLED AND NOTIFIED PATRICIA AT [facility] PATIENT, . [facility] PATIENT TO DELIVER NEBULIZER TO PT'S ROOM FOR DISCHARGE HOME TODAY. CM SPOKE TO PT AND SPOUSE IN ROOM, NOTIFIED OF ABOVE INFORMATION, BOTH DENY FURTHER DISCHARGE NEEDS. FOR DISCHARGE NOTIFY [facility] AT [phone], FAX DISCHARGE INFORMATION TO [facility] AT [phone]. Sarbjit Hawkins, CASE MANAGEMENT DCP- Discharge Planning Updated by [id number]: Sarbjit Hawkins on 02/22/19 4:[address] Patient Name: SARBJIT PUGA Encounter No: [id number] : 1945 Primary Insurance: [facility] [employer] Anticipated DC Date: 02-22-2019 Planned Disposition: Home with Home Health External Planned Provider: [facility] DCP follow-up note: CM SPOKE TO DR. LENZ WHO HAS ORDERED WALK TEST FOR HOME AND PORTABLE OXYGEN AND ORDERED NEBULIZER FOR HOME USE. CM MET WITH PT IN ROOM TO DISCUSS DISCHARGE NEEDS AND PLANNING. CM DISCUSSED AVAILABILITY OF HOME HEALTH, REHAB SERVICES AND MEDICAL EQUIPMENT. PT WOULD LIKE HOME HEALTH AND ASKED CM TO SPEAK TO HIS WHEN SHE ARRIVES IN A FEW MINUTES REGARDING HOME HEALTH AND MEDICAL EQUIPMENT PROVIDER CHOICES. SPOUSE TO TRANSPORT HOME AT DISCHARGE. IMPORTANT MESSAGE FROM MEDICARE PROVIDED AND EXPLAINED. PT'S ARRIVED, CM DISCUSSED PROVIDERS FOR HOME HEALTH AND MEDICAL EQUIPMENT, PROVIDED CHOICE LISTING. PT'S SPOUSE HAS NO PREFERENCE ON MEDICAL EQUIPMENT PROVIDER OR HOME HEALTH PROVIDER. CHOICE SIGNED. CM SPOKE TO AILYN OF [facility], WHO ACCEPTED REFERRAL AND TOOK REFERRAL INFORMATION. CM CALLED [facility] PATIENT, , SPOKE TO PATRICIA AND PROVIDED REFERRAL INFORMATION. CM FAXED REFERRAL TO [facility] PATIENT, . PATRICIA ADVISED THEY WILL DELIVER PORTABLE OXYGEN TO HOSPITAL TODAY AND WILL ARRANGE HOME OXYGEN WHEN PT ARRIVES AT HOME AFTER DISCHARGE. PT AND SPOUSE NOTIFIED IN ROOM, BOTH DENIED FURTHER NEEDS FOR DISCHARGE HOME. FOR DISCHARGE, NOTIFY [facility] AT [phone], FAX DISCHARGE INFORMATION TO [facility] AT [phone]. Sarbjit Hawkins, CASE MANAGEMENT Appended by Sarbjit Hawkins on 02/22/2019 17:06 CDT: [facility] RECEIVED CALL FROM PATRICIA OF [facility] PATIENT WHO INFORMED CM THAT PT'S WALK TEST WILL NEED TO BE DONE AGAIN TOMORROW PT HAS DIAGNOSIS OF PNEUMONIA THAT REQUIRES 7 DAYS OF ANTIBIOTICS PRIOR TO WALK TEST RESULTS FOR OXYGEN QUALIFICATION. PT WILL NEED ANOTHER WALK TEST FOR OXYGEN QUALIFICATION 02-23-19, WITH RESULTS FAXED TO [facility] PATIENT. FAX DISCHARGE, NOTIFY [facility] AT [phone], FAX DISCHARGE INFORMATION TO [facility] AT [phone]. Sarbjit Hawkins, CASE MANAGEMENT DCP- Discharge Planning Updated by [email or web address]: Sarbjit Hawkins on 02/19/19 3:[address] Patient Name: SARBJIT PUGA Admission Status: ER Accout number: [id number] Admission Date: 02-16-2019 : 1945 Admission Diagnosis:SEPSIS, UNSPECIFIED ORGANISM Attending: ANTONIO THAKKAR Current LOS: 3 Anticipated DC Date: Planned Disposition: Home Primary Insurance: [facility] [employer] Discharge Planning Comments: CM MET WITH PT IN ROOM TO DISCUSS DISCHARGE PLANNING AND NEEDS. PT REPORTS LIVING AT HOME INDEPENDENTLY WITH HIS . PT HAS NO MEDICAL EQUIPMENT AND NO OUTSIDE SERVICES ASSISTING IN THE HOME. CM DISCUSSED AVAILABILITY OF HOME HEALTH, REHAB SERVICES AND MEDICAL EQUIPMENT. PT REPORTS UNKNOWN DISCHARGE NEEDS AT THIS TIME, WANTS TO GO HOME WITH AT DISCHARGE. PT REPORTS HIS WILL PICK HIM UP FOR DISCHARGE HOME. PT PLANS TO DISCHARGE HOME WITH SPOUSE, HAS UNKNOWN DISCHARGE NEEDS AT THIS TIME. CM TO FOLLOW AND ASSIST IF NEEDED. Fire Protection Engineer: Sarbjit Hawkins DCPIA - Discharge Planning Initial Assessment Updated by [id number]: Sarbjit Hawkins on 02/19/19 4:34 pm * Is the patient Alert and Oriented? Yes * How many steps to enter\exit or inside your home? NONE * PCP DR. TOMLINSON * Pharmacy [facility] * Preadmission Environment Home with Family * ADLs Independent * Equipment None * Other Equipment NO MEDICAL EQUIPMENT PROVIDER PREFERENCE * List name and contact numbers for known caregivers / representatives who currently or will assist patient after discharge: LAURIE PUGA, SPOUSE, * Verbal permission to speak to the caregivers and representatives has been obtained from the patient. N/A * Community resources currently utilized None * Please name any agencies selected above. NONE * Additional services required to return to the preadmission environment? No * Can the patient safely return to the preadmission environment? Yes * Has this patient been hospitalized within the prior 30 days at any hospital? No Coverage Notice Reviewer: [id number] Theo Hawkins Notice Issued Date-Time: 02/22/2019 13:55 Notice Type: IM Discharge Notice Notice Delivered To: Family Member Relationship to Patient: Spouse Requirements Manager Name: LAURIE PUGA Delivery Method: HAND - Hand Delivered Patricia Days: Prior Verbal Notification: Recipient Understood Notice: Yes Recipient Signature: Yes Med Rec Note Co-signed by Attending: Coverage Notice Comment: NO HOME HEALTH PROVIDER PREFERENCE NO MEDICAL EQUIPMENT PROVIDER PREFERENCE Last DP export: 02/24/19 3:25 p Patient Name: SARBJIT PUGA Page 23879 at 1633 All edits/amendments must be made on the electronic document DICTATION DATE: 02/24/19 1633 PRODUCTION CONTROL EXPEDITER: JAMESON 02/24/19 1633 RPT#: [id number] DC DATE:02/24/19 STATUS: DIS IN [facility] [address] [place] [address] END OF REPORT
== END 2019-02-24 10:59 | disposition home health service (06) | DRG 871 ==
LOC: D.ER 15:57 → D.M2 18:16 → D.MS 18:16 → D.M2 02-18 12:31
PROVIDERS: Emergency Medicine; Internal Medicine Gastroenterology; Internal Medicine Nephrology; Internal Medicine Pulmonary Disease; ADMIT Emergency Medicine; ATTEND Emergency Medicine
PROC: 0DB68ZX Excision of Stomach, Via Natural or Artificial Opening Endoscopic, Diagnostic (ICD-10-PCS; 2019-02-23)
PROC: 0DB58ZX Excision of Esophagus, Via Natural or Artificial Opening Endoscopic, Diagnostic (ICD-10-PCS; principal; 2019-02-23 13:30)
DX: A41.9 Sepsis, unspecified organism (principal); J18.9 Pneumonia, unspecified organism; J96.01 Acute respiratory failure with hypoxia; E87.1 Hypo-osmolality and hyponatremia; N17.9 Acute kidney failure, unspecified; K22.10 Ulcer of esophagus without bleeding; B37.81 Candidal esophagitis; I10 Essential (primary) hypertension; I25.10 Atherosclerotic heart disease of native coronary artery without angina pectoris; E83.42 Hypomagnesemia; E11.65 Type 2 diabetes mellitus with hyperglycemia; D64.9 Anemia, unspecified; K21.0 Gastro-esophageal reflux disease with esophagitis; K25.9 Gastric ulcer, unspecified as acute or chronic, without hemorrhage or perforation; K26.9 Duodenal ulcer, unspecified as acute or chronic, without hemorrhage or perforation